=== PATIENT | male | born 1995 | race Caucasian/White ===

== ENCOUNTER 2023-07-05 18:00 | Inpatient (IN) | payer SELFPAY ==
[2023-07-05] VITALS (11 sets, daily range): BP systolic 122–157; BP diastolic 63–87; PULSE 82–104; RESP 14–26; TEMP 36.9–38.4; O2SAT 90–98; BMI 32.5; BMI 34.2
--- NOTE | 2023-07-05 18:03 | ED_ITS ---
HPI - Abdominal Pain 2 General: Chief Complaint: Abdominal Pain Stated Complaint: abd pain Time Seen by Provider: 07/05/23 18:02 History of Present Illness: 27-year-old male presents the emergency department complaints of right lower quadrant abdominal pain. He states he has had associated nausea without vomiting. He states his pain initially is a 8 out of 10 and then suddenly became better. He does endorse subjective fever and rigors. He denies recent known injury or trauma. Associated Symptoms: Reports nausea Review of Systems 2 General: Reports: 10 or more systems reviewed and unremarkable except in HPI and below GI: Reports: abdominal pain and nausea PFS ED 2 PFSH: Medical History (Updated 07/05/23 @ 21:37 by Ino Braun MD) Psychiatric care Nicotine dependence, chewing tobacco, uncomplicated Generalized anxiety disorder Social History (Updated 04/03/21 @ 09:36 by Sheryl Harris, [facility]) Alcohol intake: current Alcohol intake frequency: holidays/special occasions only Alcohol type: beer Substance/Drug Use: never Adopted: No Caregiver/support person: No Lives independently: No Household members: spouse and children Housing: House Marital status: Number of children: 2 Current occupational status: employed Current gender identity: Male Physical Exam 2 Narrative: EXAM NARRATIVE: Constitutional: the patient appears well nourished and with normal development. Vital signs reviewed as documented. HENMT: Normocephalic, atraumatic. Extermal ears with normal appearance without drainage. Nose without drainage, normal appearance. Mucus membranes moist. Neck is supple, No jugular venous distension, trachea is midline, no appreciable carotid bruits. No lymphadenopathy. No meningeal signs. Flexion, extension and lateral rotation is without pain. Eyes: Pupils are equal, round, reactive to light and accommodation. No scleral icterus. Extra-ocular movement are intact. Thorax is symmetrical and with equal rise and fall with respirations. Resp: Lungs are clear to auscultation. No wheezes, rales, crackles or ronchi at present. Cardio: Regular rate and rhythm. Positive S1, S2. No appreciable murmurs, rubs or gallops. GI: Abdominal exam reveals normal bowel sounds to all quadrants. No organomegaly. No obvious palpable masses noted. No hepatomegally appreciated. Soft, right lower quadrant tender to palpation. Extremity: Extremities are non-edematous and both femoral and pedal pulses are 2+ and equal bilaterally. Moves all extremities well, sensation in all extremities. Neuro: Alert and oriented x4, person, place, time and situation. Cranial nerves II through XII are grossly intact, there is no focal neurological deficits that I can appreciate at present. Motor strength in the upper and lower extremities are equal and bilateral 5/5. Psych: Cooperative, calm, normal thought process, appropriate judgment. Skin: No lesions, rashes. No gross abnormalities noted. Back: Symmetrical, no obvious deformity, No CVA tenderness Course 2 Vital Signs: Vital signs: Vital Signs Temperature 98.4 F 07/05/23 19:42 Pulse Rate 104 H 07/05/23 19:42 Respiratory Rate 18 07/05/23 19:42 Blood Pressure 136/76 07/05/23 19:42 Pulse Oximetry 95 07/05/23 19:42 Oxygen Delivery Me thod Room Air 07/05/23 19:42 MDM - Abdominal Pain Medical Decision Making Physical exam completed and documented, I will obtain a CBC, CMP, blood cultures and a CT scan of his abdomen pelvis I suspect most likely his differential diagnosis to include acute appendicitis, ruptured appendicitis, colitis, gastroenteritis, muscle strain. I will provide him IV antibiotics for what I suspect is most likely a appendicitis or acute ruptured appendicitis. I will also provide surgical consultation. Medical Records I reviewed the patient's medical records. Lab Data I reviewed the patient's lab results. 07/05/23 17:46 07/05/23 17:46 Labs/Radiology: Radiology Impressions Abdomen/Pelvis CT 07/05/23 18:16 IMPRESSION: 1. Acute pancreatitis. Locules of air seen outside the lumen of the appendix are concerning for perforation. 2. No abscess identified. ADDENDUM: 07/05/23 0948 THIS REPORT CONTAINS FINDINGS THAT MAY BE CRITICAL TO PATIENT CARE. The findings were verbally communicated via telephone conference with INO Albarran at 6:56 PM FEED MILL MANAGER on 07/05/2023. The findings were acknowledged and understood. Laboratory Results WBC 17.82 10^3/uL (3.29-11.43) H 07/05/23 17:46 RBC 4.76 10^6/uL (3.85-5.65) 07/05/23 17:46 Hgb 14.20 g/dL (11.27-16.99) 07/05/23 17:46 Hct 41.6 % (37-53) 07/05/23 17:46 MCV 87.4 fl (82-101) 07/05/23 17:46 MCH 29.8 pg (27-33) 07/05/23 17:46 MCHC 34.1 g/dL (30-55) 07/05/23 17:46 RDW 11.9 % (12.1-15.1) L 07/05/23 17:46 Plt Count 248 10^3/cmm (157-399) 07/05/23 17:46 MPV 11.3 fL (7.4-10.4) H 07/05/23 17:46 Neut % (Auto) 78.7 % 07/05/23 17:46 Lymph % (Auto) 10.9 % 07/05/23 17:46 [place] % (Auto) 9.8 % 07/05/23 17:46 Eos % (Auto) 0.0 % 07/05/23 17:46 Baso % (Auto) 0.3 % 07/05/23 17:46 Neut # (Auto) 14.02 10^3/uL (1.8-7.7) H 07/05/23 17:46 Lymph # (Auto) 2.0 10^3/uL (0.8-4.8) 07/05/23 17:46 [place] # (Auto) 1.7 10^3/uL (0.2-0.9) H 07/05/23 17:46 Eos # (Auto) 0.0 10^3/uL (0.0-0.8) 07/05/23 17:46 Baso # (Auto) 0.1 10^3/uL (0.0-0.1) 07/05/23 17:46 Nucleated RBC % (auto) 0 % 07/05/23 17:46 Nucleated RBCs # 0.0 /100WBC 07/05/23 17:46 Sodium 134 mmol/L (136-145) L 07/05/23 17:46 Potassium 3.7 mmol/L (3.5-5.1) 07/05/23 17:46 Chloride 98 mmol/L (98-107) 07/05/23 17:46 Carbon Dioxide 22 mmol/L (22-29) 07/05/23 17:46 Anion Gap 17.7 (5-19) 07/05/23 17:46 BUN 13 mg/dL (6-20) 07/05/23 17:46 Creatinine 0.9 mg/dL (0.7-1.2) 07/05/23 17:46 GFR Calculation 99.8 mL/min (90-130) 07/05/23 17:46 Glucose 124 mg/dL (65-115) H 07/05/23 17:46 Calculated Osmolality 280 mOsm/kg (285-295) L 07/05/23 17:46 Calcium 9.2 mg/dL (8.5-10.5) 07/05/23 17:46 Total Bilirubin 1.7 mg/dL (0.15-1.2) H 07/05/23 17:46 AST 24 U/L (0-40) 07/05/23 17:46 ALT 38 U/L (0-41) 07/05/23 17:46 Alkaline Phosphatase 65 U/L (40-130) 07/05/23 17:46 Total Protein 7.5 g/dL (6.6-8.7) 07/05/23 17:46 Albumin 4.7 g/dL (3.5-5.2) 07/05/23 17:46 Globulin 2.8 g/dL (1.3-4.6) 07/05/23 17:46 Lipase 14 U/L (13-60) 07/05/23 17:46 All radiology interpretation(s) finalized by discharge Discharge Plan Discharge Patient Disposition: Admitted As Inpatient Admit Provider: James Billy Clinical Impression: Acute perforated appendicitis, Abdominal pain Condition: Stable Coding Level of Care Code ED Clinical Documentation Spec for Annie Murillo
--- NOTE | 2023-07-05 18:16 | CTR_ITS ---
PROCEDURE INFORMATION: Exam: CT Abdomen And Pelvis With Contrast Exam date and time: 07/05/2023 6:28 PM Age: 27 years old Clinical indication: Nausea and vomiting; Abdominal pain; Localized; Right lower quadrant (rlq); Patient HX: Rlq pain with n/v; Additional info: Rlq abd pain TECHNIQUE: Imaging protocol: Computed tomography of the abdomen and pelvis with contrast. Radiation optimization: All CT scans at this facility use at least one of these dose optimization techniques: automated exposure control; mA and/or kV adjustment per patient size (includes targeted exams where dose is matched to clinical indication); or iterative reconstruction. Contrast material: OMNI 350; Contrast volume: 100 ml; Contrast route: INTRAVENOUS (IV); REPORTING DATA: Count of CT and Cardiac NM exams in prior 12 months: This patient has received 0 known CTs and 0 known cardiac nuclear medicine studies in the 12 months prior to the current study. COMPARISON: No relevant prior studies available. RADIATION DOSE METRICS: Total DLP (mGy-cm): 1061.37 FINDINGS: Liver: Normal. No mass. Gallbladder and bile ducts: Normal. No calcified stones. No ductal dilation. Pancreas: See Appendix finding. Spleen: Normal. No splenomegaly. Adrenal glands: Normal. No mass. Kidneys and ureters: Normal. No hydronephrosis. Stomach and bowel: Unremarkable. No obstruction. No mucosal thickening. Appendix: The appendix is enlarged measuring up to 18 mm in diameter. There is a 26 mm appendicolith at the base of the appendix. There is extensive periappendiceal fat stranding and a minimal amount of fluid. Findings are consistent with acute pancreatitis. Intraperitoneal space: Unremarkable. No free air. No significant fluid collection. Vasculature: Unremarkable. No abdominal aortic aneurysm. Lymph nodes: Unremarkable. No enlarged lymph nodes. Urinary bladder: Unremarkable as visualized. Reproductive: Unremarkable as visualized. Bones/joints: Bilateral pars defects at L5. Soft tissues: Unremarkable. Other findings: No abscess identified. CT/CT abdomen pelvis w con* [id number] IMPRESSION: 1. Acute pancreatitis. Locules of air seen outside the lumen of the appendix are concerning for perforation. 2. No abscess identified.
[2023-07-05] MEDS: iohexol 350 mg/mL 500 mL Btl (per mL) IV (18:32)
[2023-07-05 18:34] LABS: Basophils # 0.1 10^3/uL (0.0-0.1); Basophils % 0.3 %; Hematocrit 41.6 % (37-53); Lymphocytes % 10.9 %; Mean Corpuscular HGB Conc 34.1 g/dL (30-55); Mean Corpuscular Hemoglobin 29.8 pg (27-33); Mean Corpuscular Volume 87.4 fl (82-101); Mean Platelet Volume 11.3 fL (7.4-10.4); Monocytes # 1.7 10^3/uL (0.2-0.9); Monocytes % 9.8 %; Neutrophils # 14.02 10^3/uL (1.8-7.7); Neutrophils % 78.7 %; Nucleated Red Blood Cells % 0 %; Platelet Count 248 10^3/cmm (157-399); Red Blood Count 4.76 10^6/uL (3.85-5.65); Red Cell Distribution Width 11.9 % (12.1-15.1); White Blood Count 17.82 10^3/uL (3.29-11.43)
[2023-07-05 18:55] LABS: Alanine Aminotransferase 38 U/L (0-41); Albumin Level 4.7 g/dL (3.5-5.2); Alkaline Phosphatase 65 U/L (40-130); Anion Gap 17.7 (5-19); Aspartate Amino Transferase 24 U/L (0-40); Blood Urea Nitrogen 13 mg/dL (6-20); Calcium 9.2 mg/dL (8.5-10.5); Carbon Dioxide 22 mmol/L (22-29); Chloride 98 mmol/L (98-107); Creatinine Clr Calc Pharmacy 154.3462; Globulin 2.8 g/dL (1.3-4.6); Glomerular Filtration Rate 99.8 mL/min (90-130); Glucose 124 mg/dL (65-115); Lipase 14 U/L (13-60); Osmolality Calculated 280 mOsm/kg (285-295); Potassium 3.7 mmol/L (3.5-5.1); Sodium 134 mmol/L (136-145); Total Bilirubin 1.7 mg/dL (0.15-1.2); Total Protein 7.5 g/dL (6.6-8.7)
[2023-07-05] MEDS: ciprofloxacin 400 MG/200 ML PREMIX 200 MG IV (19:19)
[2023-07-05] MEDS: ketorolac 30 mg/mL INJ IVP (19:24)
[2023-07-05] MEDS: metroNIDAZOLE IV 500 MG/100 ML PREMIX 100 MG IV (19:27)
--- NOTE | 2023-07-05 19:31 | P.HP_ITS ---
Providers/Chief Complaint 2 Admitting Physician: James Billy MD Chief Complaint: abd pain History of Present Illness Moisés Roque is a 27 year old male who presents to the hospital complaining of right lower quadrant abdominal pain for the last [address] scan done on the ED showed evidence of a perforated acute appendicitis with a phlegmonous changes, no abscess and fecalith measuring almost 2 cm. I was consulted for this finding. White count was 17 K. Review of Systems 2 Narrative: 10 point review of systems done and nega tive otherwise noted in HPI Medications/Allergies Home Medications Medication Instructions Recorded Confirmed Last Taken Type clonazepam 1 mg tablet (Klonopin) 1 mg PO .bedtime #30 tabs 03/27/23 03/27/23 Unknown Rx Allergies Allergy/AdvReac Type Severity Reaction Status Date / Time amoxicillin Allergy Severe ALGY-Anaphy Verified 03/27/23 08:16 laxis erythromycin base Allergy Severe ALGY-Anaphy Verified 03/27/23 08:16 laxis Sulfa (Sulfonamide Allergy Severe ALGY-Anaphy Verified 03/27/23 08:16 Antibiotics) laxis PFSH Acute 2 PFSH: Medical History (Updated 07/05/23 @ 19:37 by James Billy MD) Psychiatric care Nicotine dependence, chewing tobacco, uncomplicated Generalized anxiety disorder Social History (Updated 04/03/21 @ 09:36 by Sheryl Harris, [facility]) Alcohol intake: current Alcohol intake frequency: holidays/special occasions only Alcohol type: beer Substance/Drug Use: never Adopted: No Caregiver/support person: No Lives independently: No Household members: spouse and children Housing: House Marital status: Number of children: 2 Current occupational status: employed Current gender identity: Male Vitals/I&O/Wt Last Vital Signs Temp 101.2 F H 07/05/23 18:02 Pulse 103 H 07/05/23 18:02 Resp 18 07/05/23 18:40 BP 138/63 07/05/23 18:40 Pulse Ox 92 07/05/23 18:40 O2 Del Method Room Air 07/05/23 18:40 Weight last 48 hrs Weight 240 lb Physical Exam 2 Narrative: General : Patient is well developed , no acute distress, oriented x3 Head : Normal cephalic, a-traumatic. Nose : Mucous membranes are without erythema. Lungs : Equal chest rise bilaterally, no use of accessory muscles, trachea is midline. CV : Rate and rhythm are normal. Abdomen : Abdomen is soft, there is significant tenderness in the right lower quadrant rebound tenderness, consistent with localized peritonitis. Extremities : No edema. Upper extremities are normal bilaterally. Back : non-tender to palpation, no CVA tenderness. Data 07/05/23 17:46 07/05/23 17:46 Micro: Microbiology 07/05/23 19:19 Blood Culture - Preliminary Blood SPECIMEN COLLECTED 07/05/23 19:14 Blood Culture - Preliminary Blood SPECIMEN COLLECTED A&P Assessment and plan (1) Acute perforated appendicitis: Plan After complete history physical examination and review of all available clinical data the following is my assessment. Is a patient with a perforated acute appendicitis, who is showing early signs of systemic inflammatory response, I have discussed with the patient and the proposed treatment plan with laparoscopic possible open appendectomy initiation of IV antibiotics and fluid bolus. I have discussed all the risk and benefits of the operation including the increased risk of morbidity due to perforation, need to conversion to open procedure, prolonged hospital stay, possible development of intra-abdominal abscess, increased risk of injury of surrounding structures including the ureter and blood vessels, possible development of enterocutaneous fistula. After discussing risk and benefits the patient agrees to proceed. I have discussed with emergency department physician and patient has been started on Cipro and Flagyl, he received a dose of Toradol and were starting a fluid bolus. Patient will be admitted to the medical surgical floor after surgery. Attestations 2 Medical Necessity Statement*: Patient will require at least 48 hours of inpatient stay for IV antibiotics due to perforated acute appendicitis. Coding Level of Care Code 59574 Diagnoses Acute perforated appendicitis K35.32
--- NOTE | 2023-07-05 19:38 | ANES.PREANE2 ---
Pre-Anesthetic Assessment Height/Weight: Height 1.83 m Weight 108.862 kg Temp Pulse Resp BP Pulse Ox O2 Del Method 101.2 F H 103 H 18 138/63 92 Room Air 07/05/23 18:02 07/05/23 18:02 07/05/23 18:40 07/05/23 18:40 07/05/23 18:40 07/05/23 18:40 Operation Date: 07/05/23 07:50 Proposed Procedures p Laparoscopic Appendectomy(Not Applicable) - James Billy MD Familial anesthetic complications: None Was Beta Cristine taken within 24 hours: N/A Was Clonidine taken within 24 hours: N/A Last intake: > 8hrs Social No alcohol and No tobacco Exam alert, oriented x 3, clear to auscultation bilaterally and regular rate & rhythm full banegas Airway Mallampati: Class II Dentition: full Anesthetic Plan ASA status: 1E Anesthesia: General Risk of > 500 ml blood loss (7ml/kg in children): No Medications/Allergies Home Medications Medication Instructions Recorded Confirmed Last Taken Type clonazepam 1 mg tablet (Klonopin) 1 mg PO .bedtime #30 tabs 03/27/23 03/27/23 Unknown Rx Allergies Allergy/AdvReac Type Severity Reaction Status Date / Time amoxicillin Allergy Severe ALGY-Anaphy Verified 03/27/23 08:16 laxis erythromycin base Allergy Severe ALGY-Anaphy Verified 03/27/23 08:16 laxis Sulfa (Sulfonamide Allergy Severe ALGY-Anaphy Verified 03/27/23 08:16 Antibiotics) laxis Current Medications Generic Name Dose Route Start Last Admin Trade Name Rita PRN Reason Stop Dose Admin Metronidazole 500 mg in 100 mls @ 100 mls/hr 07/05/23 19:01 07/05/23 19:27 Flagyl Iv IV 07/05/23 20:00 100 mls/hr ONCE ONE Administration Ciprofloxacin/Dextrose 400 mg in 200 mls @ 200 mls/hr 07/05/23 19:01 07/05/23 19:19 Cipro IV 07/05/23 20:00 200 mls/hr ONCE ONE Administration Protocol [facility] Anesthesia Medical History (Updated 07/05/23 @ 19:37 by James Billy MD) Psychiatric care Nicotine dependence, chewing tobacco, uncomplicated Generalized anxiety disorder Social History (Updated 04/03/21 @ 09:36 by Sheryl Harris, [facility]) Alcohol intake: current Alcohol intake frequency: holidays/special occasions only Alcohol type: beer Substance/Drug Use: never Adopted: No Caregiver/support person: No Lives independently: No Household members: spouse and children Housing: House Marital status: Number of children: 2 Current occupational status: employed Current gender identity: Male Data Anesthesia 07/05/23 17:46 07/05/23 17:46 Short CBC 07/05/23 Range/Units 17:46 WBC 17.82 H (3.29-11.43) 10^3/uL Hgb 14.20 (11.27-16.99) g/dL Hct 41.6 (37-53) % MCV 87.4 (82-101) fl Plt Count 248 (157-399) 10^3/cmm Neut % (Auto) 78.7 % Neut # (Auto) 14.02 H (1.8-7.7) 10^3/uL BMP 07/05/23 17:46 Sodium 134 L Potassium 3.7 Chloride 98 Carbon Dioxide 22 BUN 13 Creatinine 0.9 Glucose 124 H Calcium 9.2 Liver Function 07/05/23 Range/Units 17:46 Total Bilirubin 1.7 H (0.15-1.2) mg/dL AST 24 (0-40) U/L ALT 38 (0-41) U/L Alkaline Phosphatase 65 (40-130) U/L Albumin 4.7 (3.5-5.2) g/dL Microbiology 07/05/23 19:19 Blood Culture - Preliminary Blood SPECIMEN COLLECTED 07/05/23 19:14 Blood Culture - Preliminary Blood SPECIMEN COLLECTED Cardiac Studies: No Data to Display
[2023-07-05] MEDS: lidocaine-epi 2% 20 mL INJ INJECTION (20:35)
[2023-07-05] MEDS: BUPivacaine 0.25% INJ 10 mL INJECTION (20:35)
--- NOTE | 2023-07-05 22:30 | P.OP_ITS ---
Operative Report Date of procedure: July 05, 2023 Pre-op diagnosis: Perforated acute appendicitis Post-op diagnosis: Perforated acute appendicitis with abscess Post-op findings: There was a perforated acute appendicitis with phlegmonous changes pericolonic abscess noted, the appendix was densely adhered to the surrounding tissues including the retroperitoneum, the tip of the appendix extended all the way down up to the level of the midline of the patient, the perforation was a lower level of the base, 2 very large large fecaliths were identified at this region. Extensive dissection was required in order to mobilize the colon and appendix. Procedure done: Laparoscopic appendectomy and partial cecectomy Specimens removed/disposition: Appendix and portion of cecum. Surgeon: James Billy MD Dental Chair Assembler: [facility] Estimated blood loss: 15 Complications: None apparent Brief History: This is a 27-year-old male who presented to emergency room complaining of abdominal pain CT scan showed evidence of perforated acute appendicitis, patient was emergently taken to the OR for laparoscopic appendectomy after discussion of all the risk and benefits were done with the patient, he was informed that he was a very high risk for complications due to the nature of his disease and the severe inflammatory process in the right lower quadrant. Patient agreed with the reason and wished to proceed. Procedure: Patient was brought into the OR. She he was placed in the supine position. The abdomen was prepped and draped in the usual sterile fashion. Timeout was conducted. The abdomen was entered via infraumbilical incision with an open technique, a 12 mm Mallory trocar was placed and fixed to the fascia with 0 Vicryl. Initial laparoscopy showed evidence of no visceral injury during entry. Additional 5 mm trocars were placed in the suprapubic and left lower quadrant position. The patient was positioned steep Trendelenburg left side down. Findings dense inflammatory process was noted on the right lower quadrant the terminal ileum was plastered to the cecum, blunt mobilization of these structures was done and revealed a large abscess containing stool and purulent material, the abscess was drained with suction irrigation. At this moment I was able to visualize the appendix, the appendix was densely adhered to the retroperitoneum and expanding almost to the level of the midline. I proceeded with careful dissection using blunt mobilization and ligasure mobilized the mesoappendix from the tip of the appendix to the base, at this point it was apparent that the large perforation was at the level of the base and therefore I proceeded to incise the white line of Toldt and mobilized the right colon medially to allow for space for stapling of the base of the appendix. Extensive dissection was needed in order to mobilize the appendix and the cecum, there was dense adhesions caused by the inflammation. Once the cecum was mobilized medialized I then identified a good landing zone for my stapler, a portion of the cecum was transected using a 45 mm blue load Endo BRNADEE stapler x 3. I took careful consideration of not injuring the terminal ileum during this process. The specimen and fecaliths were retrieved via the umbilical incision in an Endo Catch bag. The abdominal cavity was washed out and a drain was placed and delivered through the left lower quadrant trocar, the drain was fixed with #2-0 silk. The umbilical trocar site was then closed using 0 Vicryl on a Víctor- Bianka scooter passer under direct visualization. The suprapubic trocar was used to evacuate the pneumoperitoneum and subsequently removed. The umbilical trocar site fascia was then closed using the 0 Vicryl that was used to fix the Mallory trocar in place. The wounds were closed with #4-0 Monocryl. Dermabond was applied. At the end of the procedure all counts were correct, patient was extubated and transferred to the PACU in stable condition.
--- NOTE | 2023-07-05 22:51 | PC.NURSE ---
2248 - oral airway removed per pt - simple mask at [address]
[2023-07-06] VITALS (10 sets, daily range): BP systolic 110–122; BP diastolic 67–77; PULSE 58–87; RESP 16–18; TEMP 36.4–36.7; O2SAT 92–97; BMI 34.5
[2023-07-06] MEDS: HYDROmorphone 1 mg/mL INJ 1 mL 0.5 MG IVP ×2 (00:53→05:11)
[2023-07-06] MEDS: lactated ringers 1,000 ML 100 ML IV ×2 (01:11→11:01)
[2023-07-06] MEDS: acetaminophen 1,000 MG/100 ML PIGGYBACK 400 MG IV ×3 (01:14→14:25)
[2023-07-06] MEDS: ciprofloxacin 400 MG/200 ML PREMIX 200 MG IV ×2 (01:25→12:50)
[2023-07-06] MEDS: ondansetron 2 mg/ML SDV 2 mL 4 MG IVP (03:10)
[2023-07-06] MEDS: metroNIDAZOLE IV 500 MG/100 ML PREMIX 100 MG IV ×2 (03:11→11:01)
[2023-07-06] MEDS: ketorolac 30 mg/mL INJ 15 MG IVP (04:46)
[2023-07-06 07:03] LABS: Blood Urea Nitrogen 17 mg/dL (6-20); Calcium 8.3 mg/dL (8.5-10.5); Carbon Dioxide 19 mmol/L (22-29); Chloride 99 mmol/L (98-107); Glomerular Filtration Rate 114.3 mL/min (90-130); Glucose 175 mg/dL (65-115); Osmolality Calculated 282 mOsm/kg (285-295); Sodium 133 mmol/L (136-145)
[2023-07-06 07:33] LABS: Anion Gap 19.1 (5-19); Potassium 4.1 mmol/L (3.5-5.1)
--- NOTE | 2023-07-06 09:12 | PC.NURSE ---
Patient has repeated complaints of his swan catheter bothering him. Raquel, charger, called the doctor who instructed nurse to leave swan in.
--- NOTE | 2023-07-06 09:13 | CTR_ITS ---
PROCEDURE INFORMATION: Exam: CT Abdomen And Pelvis Without And With Contrast Exam date and time: 07/06/2023 9:47 AM Age: 27 years old Clinical indication: Abdominal pain; Prior surgery; Surgery date: Post-operative (0-2 days); Surgery type: Appy; Additional info: Evaluation for right ureter injury. Need urogram, please do delayed phases to evaluate ureter anatomy. CT TECHNIQUE: Imaging protocol: Computed tomography of the abdomen and pelvis without and with contrast. Radiation optimization: All CT scans at this facility use at least one of these dose optimization techniques: automated exposure control; mA and/or kV adjustment per patient size (includes targeted exams where dose is matched to clinical indication); or iterative reconstruction. Contrast material: OMNI 350; Contrast volume: 100 ml; Contrast route: INTRAVENOUS (IV); REPORTING DATA: Count of CT and Cardiac NM exams in prior 12 months: This patient has received [address] and 0 known cardiac nuclear medicine studies in the 12 months prior to the current study. COMPARISON: CT abdomen pelvis w con* [id number] 07/05/2023 6:28 PM RADIATION DOSE METRICS: Total DLP (mGy-cm): 3888.97 FINDINGS: Tubes, catheters and devices: Draining catheter is seen entering the left lower quadrant with its tip in the right lower quadrant. Lungs: Bibasilar posterior consolidations with air bronchograms. Liver: 1.3 centimeters hypodensity in segment 8 of the liver. Small amount of perihepatic free air is seen, consistent with the recent history of surgery. Trace amount of non organized fluid is seen along the right paracolic gutter. Gallbladder and bile ducts: Gallbladder is normally distended, with layering high attenuating contrast material. Pancreas: No pancreatic mass or pancreatitis. Pancreatic duct normal in caliber. Spleen: Normal spleen. Adrenal glands: No adrenal nodule. Kidneys and ureters: No hydronephrosis, or obstructing nephroureterolithiasis. Stomach and bowel: The bowel is nondilated, no mechanical bowel obstruction. Surgical staple line is seen in the proximal right colon. Minimal surrounding free fluid and fat stranding. Appendix: Patient is status post appendectomy. Intraperitoneal space: No lymphadenopathy. Vasculature: Hepatic veins and portal veins are patent. Abdominal aorta is normal size and shape. The celiac and SMA arteries are patent. Lymph nodes: No lymphadenopathy. Urinary bladder: The bladder is partially contrast filled, with a Singh in place. Both ureters are seen and contrast filled. No evidence of extravasation of intraluminal contrast. Reproductive: Reproductive organs unremarkable. Bones/joints: No acute fracture. Mild degenerative changes of the thoracolumbar spine. Soft tissues: Unremarkable. Other findings: No extravasation of material is seen. CT/CT abdomen pelvis wo/w [id number] IMPRESSION: 1. Status post appendectomy with minimal trace of surrounding fluid along the right proximal colon. 2. No evidence of extravasation from the right ureter, the right ureter appears intact. 3. Trace of free intra-abdominal air consistent with recent surgical history. 4. Bibasilar lung consolidations, which may represent atelectasis, aspiration pneumonia can not be ruled out.
[2023-07-06 09:16] LABS: Specific Gravity, Urine 1.025 (1.005-1.030); Urine Appearance Hazy (CLEAR); Urine Color Red (Yellow); pH Urine 5 (5-7)
[2023-07-06 09:17] LABS: Add Urine Culture? No; Add Urine Microscopic? YES; Amorphous Sediment Urine 2+ /hpf; Bacteria Urine TRACE /hpf; Bilirubin Urine 1+ (Negative); Blood Urine 2+ (Negative); Glucose Urine UA 2+ (Normal); Ketones Urine 1+ (Negative); Leukocyte Esterase Urine Trace (Negative); Mucus Urine 2+ /hpf; Nitrate Urine Negative (Negative); Protein Urine Trace (Negative); Urobilinogen Urine 4 mg/dL (Negative); WBC Urine RARE /hpf (0-5)
--- NOTE | 2023-07-06 09:21 | PM.PN ---
Subjective Subjective: Is a 27-year-old male who is postoperative day 1 status post laparoscopic appendectomy for complicated appendicitis with perforation. Patient has been having a headache after surgery, abdominal pain has significantly improved. Only complaint at the moment of my visit is headache and discomfort from urinary catheter. Headache is about 5/10, abdominal pain about 2 or 3/10. Patient states that he is hungry and would like to eat. Has not passed gas yet or had a bowel movement. Vitals/I&O/Wt Last Vital Signs Temp 97.6 F 07/06/23 07:02 Pulse 60 07/06/23 07:02 Resp 17 07/06/23 07:02 BP 110/67 07/06/23 07:02 Pulse Ox 93 07/06/23 07:02 O2 Del Method Room Air 07/06/23 07:02 O2 Flow Rate 3 07/05/23 23:08 07/05/23 07/06/23 07/06/23 22:59 06:59 14:59 Intake Total 350 / 350 400 / 750 100 / 100 Output Total 315 / 315 390 / 705 Balance 35 / 35 10 / 45 100 / 100 Weight last 48 hrs Weight 254 lb 14.4 oz Weight 252 lb 1.6 oz Weight 240 lb Physical Exam Narrative: General : Patient is well developed , no acute distress, oriented x3 Head : Normal cephalic, a-traumatic. Nose : Mucous membranes are without erythema. Lungs : Equal chest rise bilaterally, no use of accessory muscles, trachea is midline. CV : Rate and rhythm are normal. Abdomen : Abdomen is soft, appropriately tender to palpation, surgical incisions are covered with Dermabond. Left lower quadrant drain in place Output about 300 cc overnight, at the moment sero-sanguinous fluid noted on the drain. Singh catheter in place, urine appears concentrated. Extremities : No edema. Upper extremities are normal bilaterally. Back : non-tender to palpation, no CVA tenderness. Urinary Catheter Management: Snigh: Cath Placed During This Visit: yes Reason for Continuing Indwelling Catheter: Required Immobilization for Trauma or Surgery or Anesthesia Urinary Catheter Date of Insertion: 07/05/23 Urinary Catheter Time of Insertion: 20:00 Data 07/05/23 17:46 07/06/23 04:59 Micro: Microbiology 07/05/23 19:19 Blood Culture - Preliminary Blood SPECIMEN COLLECTED 07/05/23 19:14 Blood Culture - Preliminary Blood SPECIMEN COLLECTED A&P Assessment and plan (1) Acute perforated appendicitis: (2) Hematuria detected by chemical testing: Plan Is a 27-year-old male postoperative day 1 status post laparoscopic appendectomy for perforated acute appendicitis. I discussed with the patient the findings of the operation this morning, I explained to the patient that there was significant amount of inflammation on the right lower quadrant involving the sidewall and extending down to the pelvis. I explained to the patient that the extensive dissection was needed in order to mobilize his appendix and partial cecal resection was require as the perforation was at the level of the base of the appendix. I have explained to the patient that I was informed that there was a blood-tinged urine during the procedure but I was unable to identify any ureteral or bladder injury seen throughout. I explained that due to the severity of the inflammation and the local inflammatory changes there is a moderate to high likelihood of a urological injury due to the amount of dissection required. Urinalysis obtained this morning showed evidence of 5-10 RBCs per power field. This supports the idea of a possible urological injury, and a stat CT urogram will be obtained, I have discussed with the patient that if the results of the urogram show evidence of a urological injury and immediate transfer to higher level of care will be required to manage the injury and provide immediate repair. Patient shows understanding, ample time was given to ask questions. At the time he does not have questions regarding the possible injury his only questions to me were if he will be able to eat or if we can remove the Singh catheter, I explained that he will be kept n.p.o. and Singh catheter in place until we have a result from the CT scan. Attestations Medical Necessity Statement*: Patient will require at least 48 hours more of hospital stay for IV antibiotics, he may require transfer to higher level of care if we identify a ureteral injury. Coding Level of Care Code Acute Code for [facility] Diagnoses Acute perforated appendicitis K35.32 Hematuria detected by chemical testing R31.9
[2023-07-06 09:35] LABS: Basophils % 0.2 %; Hematocrit 37.8 % (37-53); Lymphocytes # 0.5 10^3/uL (0.8-4.8); Lymphocytes % 2.5 %; Mean Corpuscular HGB Conc 32.3 g/dL (30-55); Mean Corpuscular Hemoglobin 29.8 pg (27-33); Mean Corpuscular Volume 92.2 fl (82-101); Mean Platelet Volume 11.4 fL (7.4-10.4); Monocytes # 0.7 10^3/uL (0.2-0.9); Monocytes % 3.8 %; Neutrophils % 92.7 %; Nucleated Red Blood Cells % 0 %; Platelet Count 180 10^3/cmm (157-399); Red Cell Distribution Width 12.4 % (12.1-15.1); White Blood Count 19.08 10^3/uL (3.29-11.43)
--- NOTE | 2023-07-06 09:57 | ANE.PACU2 ---
Inpatient post-anesthesia follow up: Airway intact: Yes Vital signs: Temperature 97.6 F Pulse Rate 60 Respiratory Rate 17 Blood Pressure 110/67 Pulse Oximetry 93 Oxygen Delivery Me thod Room Air Oxygen Flow Rate 3 Fraction of Inspir ed Oxygen Hydration adequate: Yes Nausea and vomiting: No Pain level: 1 Mental status: Baseline
[2023-07-06] MEDS: iohexol 350 mg/mL 500 mL Btl (per mL) IV (10:08)
[2023-07-06] MEDS: acetaminophen 325 mg Tablet 650 MG PO (12:49)
--- NOTE | 2023-07-06 13:28 | PM.PN ---
Subjective Subjective: Patient remains a stable, CT urogram was done this morning my assessment will be noted below. Vitals/I&O/Wt Last Vital Signs Temp 98.1 F 07/06/23 12:28 Pulse 62 07/06/23 12:28 Resp 18 07/06/23 12:28 BP 111/72 07/06/23 12:28 Pulse Ox 93 07/06/23 12:28 O2 Del Method Room Air 07/06/23 12:28 O2 Flow Rate 3 07/05/23 23:08 07/05/23 07/06/23 07/06/23 22:59 06:59 14:59 Intake Total 350 / 350 400 / 750 1183.333 / 1183.333 Output Total 315 / 315 390 / 705 Balance 35 / 1183.333 / 1183.333 Weight last 48 hrs Weight 254 lb 14.4 oz Weight 252 lb 1.6 oz Weight 240 lb Physical Exam GI: OTHER: Abdominal exam is a stable, ELBA output of the serosanguineous. Urinary Catheter Management: Singh: Cath Placed During This Visit: yes Reason for Continuing Indwelling Catheter: Required Immobilization for Trauma or Surgery or Anesthesia Urinary Catheter Date of Insertion: 07/05/23 Urinary Catheter Time of Insertion: 20:00 Data 07/06/23 04:59 07/06/23 04:59 Micro: Microbiology 07/05/23 19:19 Blood Culture - Preliminary Blood SPECIMEN COLLECTED 07/05/23 19:14 Blood Culture - Preliminary Blood SPECIMEN COLLECTED A&P Assessment and plan (1) Acute perforated appendicitis: (2) Hematuria detected by chemical testing: (3) Ureteral obstruction, right: Plan After my discussion with the patient and the family this morning we decided to proceed with CT urogram. CT urogram was read by our radiology colleagues and no evidence of significant extravasation or transection of the right ureter were noted. Upon my personal review of the imaging there is evidence of substantial narrowing of the ureter on the right side in the area that crosses over the iliac vessels, I discussed this findings with radiology and in their opinion it might be because due to edema and a close follow-up was recommended. After complete review of the imaging I have also noted some secondary changes at the level of the upper right ureter that may represent an increase in caliber when compared with the left ureter, therefore it is my assessment that there might be a stricture either due to edema or a partial transection of the ureter on the area overlying the right iliac vessels. I think the best option for the patient will be to transfer to outside facility for urology evaluation. I have discussed the case with Dr. Maynard with the urology department at [facility] in the [place] and after explaining the findings and clinical examination of the patient he has decided to accept the patient for a cystoscopy possible stent placement and possible nephrostomy tube placement indicates that that is not feasible. I agree with this assessment, we have started the transfer process to [facility] in the [place] patient has been accepted to the hospitalist team and will be follow-up by urology and general surgery. I informed the patient of these transfer and he is agreeable to it I have informed the patient that the team and nursing [place] will attempt to do the cystoscopy today to ensure prompt resolution of any possible injury. Attestations Medical Necessity Statement*: Patient will be transferred to outside hospital for evaluation by urology. Coding Level of Care Code Acute Code for [facility] Diagnoses Acute perforated appendicitis K35.32 Hematuria detected by chemical testing R31.9 Ureteral obstruction, right N13.5
--- NOTE | 2023-07-06 18:51 | P.TS_ITS ---
Transfer Summary Providers Date of Admission: 07/05/23 19:48 Date of Discharge/Transfer: 07/06/23 Attending Provider at Admission: James Billy MD Attending Provider at Transfer: James Billy MD Transfer Plans: Anticipated date of transfer: 07/06/23 . Diagnoses at Discharge Discharge Diagnosis (1) Acute perforated appendicitis: Status: Acute (2) Hematuria detected by chemical testing: Status: Acute (3) Ureteral obstruction, right: Status: Acute Reason for Visit Reason for Visit abd pain Brief History: 27-year-old male who presented with perforated acute appendicitis, was taken to the OR for laparoscopic appendectomy, severe inflammatory reaction in the right lower quadrant was noted with abscess formation, perforation at the base of the appendix and 2 large appendicoliths, the appendix was plastered to the pelvic wall requiring extensive dissection for mobilization. Was noted to have blood- tinged urine during index procedure, which prompted a postoperative assessment for evaluation for possible ureteral injury. CT ureterogram showed evidence of possible stricture due to inflammation at the level of the pelvic brim on the right ureter, after review of imaging and discussion with urologist at [facility] in the [place] we decided that the best option for the patient will be for transfer for possible stent placement and if needed a nephrostomy tube. Patient was informed of these findings as well as family members he agreed with the transfer, he was stable at the moment of transfer. Additional inpatient care will be continued at [facility] in [place], patient will be accepted under the hospitalist team, will be followed by urology and general surgery. Physical Exam GI: OTHER: Abdomen soft, appropriately tender to palpation, surgical incisions covered with Dermabond, left lower quadrant drain putting out serosanguineous fluid. Urinary Catheter Management: Singh: Cath Placed During This Visit: yes Reason for Continuing Indwelling Catheter: Required Immobilization for Trauma or Surgery or Anesthesia Urinary Catheter Date of Insertion: 07/05/23 Urinary Catheter Time of Insertion: 20:00 TS Data Studies Completed and Pending Pending at discharge Category Date Time Status Blood Culture Stat Lab 07/05/23 19:19 Results Pathology: Surgical [PTH] Routine Pth 07/05/23 22:28 Ordered Completed Studies During Hospitalization Category Date Time Status CT abdomen pelvis w con* [id number] Stat Cat Scan 07/05/23 18:[address] abdomen pelvis wo/w [id number] Stat Cat Scan 07/06/23 09:13 Completed Laboratory Last Values WBC 19.08 10^3/uL (3.29-11.43) H 07/06/23 04:59 RBC 4.10 10^6/uL (3.85-5.65) 07/06/23 04:59 Hgb 12.20 g/dL (11.27-16.99) 07/06/23 04:59 Hct 37.8 % (37-53) 07/06/23 04:59 MCV 92.2 fl (82-101) D 07/06/23 04:59 MCH 29.8 pg (27-33) 07/06/23 04:59 MCHC 32.3 g/dL (30-55) D 07/06/23 04:59 RDW 12.4 % (12.1-15.1) 07/06/23 04:59 Plt Count 180 10^3/cmm (157-399) 07/06/23 04:59 MPV 11.4 fL (7.4-10.4) H 07/06/23 04:59 Neut % (Auto) 92.7 % 07/06/23 04:59 Lymph % (Auto) 2.5 % 07/06/23 04:59 Dickinson % (Auto) 3.8 % 07/06/23 04:59 Eos % (Auto) 0.0 % 07/06/23 04:59 Baso % (Auto) 0.2 % 07/06/23 04:59 Neut # (Auto) 17.70 10^3/uL (1.8-7.7) H 07/06/23 04:59 Lymph # (Auto) 0.5 10^3/uL (0.8-4.8) L 07/06/23 04:59 Dickinson # (Auto) 0.7 10^3/uL (0.2-0.9) 07/06/23 04:59 Eos # (Auto) 0.0 10^3/uL (0.0-0.8) 07/06/23 04:59 Baso # (Auto) 0.0 10^3/uL (0.0-0.1) 07/06/23 04:59 Nucleated RBC % (auto) 0 % 07/06/23 04:59 Nucleated RBCs # 0.0 /100WBC 07/06/23 04:59 Sodium 133 mmol/L (136-145) L 07/06/23 04:59 Potassium 4.1 mmol/L (3.5-5.1) 07/06/23 04:59 Chloride 99 mmol/L (98-107) 07/06/23 04:59 Carbon Dioxide 19 mmol/L (22-29) L 07/06/23 04:59 Anion Gap 19.1 (5-19) H 07/06/23 04:59 BUN 17 mg/dL (6-20) 07/06/23 04:59 Creatinine 0.8 mg/dL (0.7-1.2) 07/06/23 04:59 GFR Calculation 114.3 mL/min (90-130) 07/06/23 04:59 Glucose 175 mg/dL (65-115) H 07/06/23 04:59 Calculated Osmolality 282 mOsm/kg (285-295) L 07/06/23 04:59 Calcium 8.3 mg/dL (8.5-10.5) L 07/06/23 04:59 Total Bilirubin 1.7 mg/dL (0.15-1.2) H 07/05/23 17:46 AST 24 U/L (0-40) 07/05/23 17:46 ALT 38 U/L (0-41) 07/05/23 17:46 Alkaline Phosphatase 65 U/L (40-130) 07/05/23 17:46 Total Protein 7.5 g/dL (6.6-8.7) 07/05/23 17:46 Albumin 4.7 g/dL (3.5-5.2) 07/05/23 17:46 Globulin 2.8 g/dL (1.3-4.6) 07/05/23 17:46 Lipase 14 U/L (13-60) 07/05/23 17:46 Urine Color Red (Yellow) A 07/06/23 07:48 Urine Appearance Hazy (CLEAR) A 07/06/23 07:48 Urine pH 5 (5-7) 07/06/23 07:48 Ur Specific [place] 1.025 (1.005-1.030) 07/06/23 07:48 Urine Protein Trace (Negative) 07/06/23 07:48 Urine Glucose (UA) 2+ (Normal) H 07/06/23 07:48 Urine Ketones 1+ (Negative) H 07/06/23 07:48 Urine Blood 2+ (Negative) H 07/06/23 07:48 Urine Nitrate Negative (Negative) 07/06/23 07:48 Urine Bilirubin 1+ (Negative) H 07/06/23 07:48 Urine Urobilinogen 4 mg/dL (Negative) H 07/06/23 07:48 Ur Leukocyte Esterase Trace (Negative) H 07/06/23 07:48 Urine RBC 5-10 /hpf (0-2) H 07/06/23 07:48 Urine WBC Rare /hpf (0-5) 07/06/23 07:48 Ur Squamous Epith Cells None /hpf (0-5) 07/06/23 07:48 Amorphous Sediment 2+ /hpf 07/06/23 07:48 Urine Bacteria Trace /hpf (NONE) 07/06/23 07:48 Urine Mucus 2+ /hpf 07/06/23 07:48 Radiology Impressions Abdomen/Pelvis CT 07/06/23 09:13 IMPRESSION: 1. Status post appendectomy with minimal trace of surrounding fluid along the right proximal colon. 2. No evidence of extravasation from the right ureter, the right ureter appears intact. 3. Trace of free intra-abdominal air consistent with recent surgical history. 4. Bibasilar lung consolidations, which may represent atelectasis, aspiration pneumonia can not be ruled out. ADDENDUM: 07/06/23 1110 ADDENDUM: Findings discussed with Dr Billy at 11:00 a.m. 07/06/2023. There is mild narrowing of the distal right ureter as it crosses the right common iliac artery without any evidence of extravasation of contrast. This may suggest mild narrowing of the ureter likely secondary to edema. Close follow-up recommended. Recent Clincial Data Last Vital Signs Temp 98 F 07/06/23 17:55 Pulse 72 07/06/23 17:55 Resp 17 07/06/23 17:55 BP 114/73 07/06/23 17:55 Pulse Ox 94 07/06/23 17:55 O2 Del Method Nasal Cannula 07/06/23 16:27 O2 Flow Rate 3 07/05/23 23:08 Vital Signs Temp Pulse Resp BP Pulse Ox O2 Del Method 07/06/23 17:55 98 F 72 17 114/73 94 07/06/23 16:27 98 F 72 17 114/73 94 Nasal Cannula 07/06/23 12:28 98.1 F 62 18 111/72 93 Room Air 07/06/23 11:45 78 16 97 Room Air 07/06/23 07:02 97.6 F 60 17 110/67 93 Room Air Intake & Output/Weight 07/04/23 07/05/23 07/06/23 07/07/23 06:59 06:59 06:59 06:59 Intake Total 750 / 750 1483.333 / 1483.333 Output Total 705 / 705 700 / 700 Balance 45 / 45 783.333 / 783.333 Weight 254 lb 14.4 oz Vitals Last Vital Signs Temp 98 F 07/06/23 17:55 Pulse 72 07/06/23 17:55 Resp 17 07/06/23 17:55 BP 114/73 07/06/23 17:55 Pulse Ox 94 07/06/23 17:55 O2 Del Method Nasal Cannula 07/06/23 16:27 O2 Flow Rate 3 07/05/23 23:08 TS Medications Medications Discontinued Medications Acetaminophen (Acetaminophen 325 Mg Tablet) 650 mg PO ONCE ONE Stop: 07/06/23 12:34 Last Admin: 07/06/23 12:49 Dose: 650 mg Albuterol Sulfate (Albuterol 2.5 Mg/3 Ml Neb) 2.5 mg INHALATION ONCE PRN PRN Reason: WHEEZING Benzocaine (Cetylpyridinium Lozenge) 1 each MUCOUS MEM ONCE ONE Stop: 07/05/23 19:49 Last Admin: 07/06/23 02:21 Dose: Not Given Bupivacaine HCl (Bupivacaine 0.25% Inj 10 Ml) Confirm Administered Dose 10 ml .ROUTE .STK-MED ONE Stop: 07/05/23 19:38 Bupivacaine HCl (Bupivacaine 0.25% Inj 10 Ml) 10 ml INJECTION ONCE ONE Stop: 07/05/23 20:35 Last Admin: 07/05/23 20:35 Dose: 10 ml Dexamethasone (Dexamethasone 4 Mg/Ml Inj) 4 mg IVP Q5M PRN PRN Reason: Nausea unrelieved by Reglan Stop: 07/06/23 19:48 Dexamethasone (Dexamethasone 4 Mg/Ml Inj) Confirm Administered Dose 8 mg .ROUTE .STK-MED ONE Stop: 07/05/23 20:05 Famotidine (Famotidine 20 Mg/2 Ml Inj) 20 mg IVP ONCE PRN PRN Reason: HEARTBURN Fentanyl (Fentanyl 50 Mcg/Ml Inj 2ml) Confirm Administered Dose 100 mcg .ROUTE .STK-MED ONE Stop: 07/05/23 19:47 Fentanyl (Fentanyl 50 Mcg/Ml Inj 2ml) 50 mcg IVP Q10M PRN PRN Reason: Preop Pain Fentanyl (Fentanyl 50 Mcg/Ml Inj 2ml) 50 mcg IVP Q5M PRN PRN Reason: Pain level 6-10 PACU Phase I Stop: 07/06/23 19:48 Fentanyl (Fentanyl 50 Mcg/Ml Inj 2ml) 100 mcg IVP ONCE PRN PRN Reason: Per anesthesia for block Glycopyrrolate (Glycopyrrolate 0.2 Mg/Ml Sdv 2 Ml) Confirm Administered Dose 0.4 mg .ROUTE .STK-MED ONE Stop: 07/05/23 21:50 Hydromorphone HCl (Hydromorphone 1 Mg/Ml Inj 1 Ml) 0.25 mg IVP Q10M PRN PRN Reason: Pain level 4-6 PACU Phase I Stop: 07/06/23 19:48 Hydromorphone HCl (Hydromorphone 1 Mg/Ml Inj 1 Ml) 0.5 mg IVP Q10M PRN PRN Reason: Pain level 7-10 PACU Phase I Stop: 07/06/23 19:48 Hydromorphone HCl (Hydromorphone 1 Mg/Ml Inj 1 Ml) Confirm Administered Dose 1 mg .ROUTE .[employer]-MED ONE Stop: 07/05/23 20:23 Hydromorphone HCl (Hydromorphone 1 Mg/Ml Inj 1 Ml) 0.5 mg IVP Q4H PRN PRN Reason: BREAKTHROUGH PAIN Last Admin: 07/06/23 05:11 Dose: 0.5 mg Cefoxitin Sodium 2,000 mg/ (Sodium Chloride) 50 mls @ 100 mls/hr IV ONCE ONE; P rotocol Stop: 07/05/23 19:26 Last Admin: 07/05/23 19:03 Dose: Not Given Metronidazole (Flagyl Iv) 500 mg in 100 mls @ 100 mls/hr IV ONCE ONE Stop: 07/05/23 20:00 Last Infusion: 07/05/23 21:00 Dose: Infused Ciprofloxacin/Dextrose (Cipro) 400 mg in 200 mls @ 200 mls/hr IV ONCE ONE; Protocol Stop: 07/05/23 20:00 Last Infusion: 07/05/23 20:08 Dose: Infused Lactated Ringer's (Lactated Ringers) 1,000 mls @ 999 mls/hr IV .Q1H1M ONE Stop: 07/05/23 20:28 Last Admin: 07/06/23 02:20 Dose: Not Given Sodium Chloride (Sodium Chloride 0.9%) 500 mls @ 999 mls/hr IV .Q31M PRN PRN Reason: HYPOTENSION Sodium Chloride (Sodium Chloride 0.9%) 1,000 mls @ 30 mls/hr IV .Q24H NELLIE Stop: 07/06/23 19:59 Last Admin: 07/06/23 02:21 Dose: Not Given Sodium Chloride (Sodium Chloride 0.9%) Confirm Administered Dose 1,000 mls @ as directed .ROUTE .STK-MED ONE Stop: 07/05/23 19:57 Last Admin: 07/06/23 00:29 Dose: Not Given Lidocaine HCl (Xylocaine) Confirm Administered Dose 5 mls @ as directed .ROUTE .STK-MED ONE Stop: 07/05/23 20:05 Acetaminophen (Acetaminophen) Confirm Administered Dose 1,000 mg in 100 mls @ as directed .ROUTE .STK-MED ONE Stop: 07/05/23 20:24 Lactated Ringer's (Lactated Ringers) 1,000 mls @ 100 mls/hr IV .Q10H NELLIE Last Admin: 07/06/23 11:01 Dose: 100 mls/hr Ciprofloxacin/Dextrose (Cipro) 400 mg in 200 mls @ 200 mls/hr IV Q12H NELLIE; Protocol Last Infusion: 07/06/23 15:40 Dose: Infused Metronidazole (Flagyl Iv) 500 mg in 100 mls @ 100 mls/hr IV Q8H NELLIE; Protocol Last Infusion: 07/06/23 13:06 Dose: Infused Acetaminophen (Acetaminophen) 1,000 mg in 100 mls @ 400 mls/hr IV Q8H NELLIE Stop: 07/06/23 15:42 Last Infusion: 07/06/23 15:40 Dose: Infused Lactated Ringer's (Lactated Ringers) 1,000 mls @ 999 mls/hr IV .Q1H1M ONE Stop: 07/06/23 07:32 Last Admin: 07/06/23 10:51 Dose: Not Given Iohexol (Iohexol 350 Mg/Ml 500 Ml Btl (Per Ml)) 0 ml IV ONCE ONE Stop: 07/05/23 18:33 Last Admin: 07/05/23 18:32 Dose: 100 ml Iohexol (Iohexol 350 Mg/Ml 500 Ml Btl (Per Ml)) 0 ml IV ONCE ONE Stop: 07/06/23 10:09 Last Admin: 07/06/23 10:08 Dose: 100 ml Ipratropium Malone (Ipratropium 0.5 Mg/2.5 Ml Neb) 0.5 mg INHALATION ONCE PRN PRN Reason: WHEEZING Ketorolac Tromethamine (Ketorolac 30 Mg/Ml Inj) 30 mg IVP ONCE ONE Stop: 07/05/23 19:02 Last Admin: 07/05/23 19:24 Dose: 30 mg Ketorolac Tromethamine (Ketorolac 30 Mg/Ml Inj) 15 mg IVP ONCE ONE Stop: 07/06/23 04:14 Last Admin: 07/06/23 04:46 Dose: 15 mg Lidocaine HCl (Lidocaine 1% Inj 10 Ml (Per Ml)) 0.1 ml INTRADERMA PRN PRN PRN Reason: anesthetic prior to IV start Lidocaine/Epinephrine (Lidocaine-Epi 2% 20 Ml Inj) Confirm Administered Dose 20 ml .ROUTE .STK-MED ONE Stop: 07/05/23 19:38 Lidocaine/Epinephrine (Lidocaine-Epi 2% 20 Ml Inj) 20 ml INJECTION ONCE ONE Stop: 07/05/23 20:34 Last Admin: 07/05/23 20:35 Dose: 10 ml Meperidine HCl (Meperidine 50 Mg/Ml Inj) 12.5 mg IVP Q5M PRN PRN Reason: Shivering PACU Phase I Stop: 07/06/23 19:48 Metoclopramide HCl (Metoclopramide 5 Mg/Ml Sdv 2 Ml) 10 mg IVP ONCE PRN PRN Reason: N/V if zofran ineffective Metoclopramide HCl (Metoclopramide 5 Mg/Ml Sdv 2 Ml) 10 mg IVP Q5M PRN PRN Reason: Nausea unrelieved by Zofran Stop: 07/06/23 19:48 Midazolam HCl (Midazolam 1 Mg/Ml Inj 2 Ml) Confirm Administered Dose 2 mg .ROUTE .STK-MED ONE Stop: 07/05/23 19:47 Midazolam HCl (Midazolam 1 Mg/Ml Inj 2 Ml) 2 mg IVP Q5M PRN PRN Reason: Preop Anxiety Midazolam HCl (Midazolam 1 Mg/Ml Inj 5 Ml) 5 mg IVP ONCE PRN PRN Reason: Per anesthesia for block Morphine Sulfate (Morphine 4 Mg/Ml Sdv 1 Ml) 2 mg IVP Q5M PRN PRN Reason: Pain level 2-5 PACU Phase I Stop: 07/06/23 19:48 Morphine Sulfate (Morphine 4 Mg/Ml Sdv 1 Ml) 0 mg IVP Q5M PRN PRN Reason: Breakthrough Pain PACU PhaseII Morphine Sulfate (Morphine 4 Mg/Ml Sdv 1 Ml) 2 mg IVP Q2M PRN PRN Reason: Pain level 6-10 PACU Phase I Stop: 07/06/23 19:48 Neostigmine Methylsulfate (Neostigmine 1 Mg/Ml Sdv 10 Ml) Confirm Administered Dose 10 mg .ROUTE .STK-MED ONE Stop: 07/05/23 21:50 Ondansetron HCl (Ondansetron 2 Mg/Ml Sdv 2 Ml) 4 mg IVP Q15M PRN PRN Reason: Nausea/Vomiting PACU PHASE II Ondansetron HCl (Ondansetron 2 Mg/Ml Sdv 2 Ml) 4 mg IVP Q5M PRN PRN Reason: Nausea PACU Phase I Stop: 07/06/23 19:48 Ondansetron HCl (Ondansetron 2 Mg/Ml Sdv 2 Ml) 4 mg IVP Q5M PRN PRN Reason: NAUSEA AND VOMITING Ondansetron HCl (Ondansetron 2 Mg/Ml Sdv 2 Ml) Confirm Administered Dose 4 mg .ROUTE .STK-MED ONE Stop: 07/05/23 20:05 Ondansetron HCl (Ondansetron 2 Mg/Ml Sdv 2 Ml) 4 mg IVP Q4H PRN PRN Reason: NAUSEA AND VOMITING Last Admin: 07/06/23 03:10 Dose: 4 mg Propofol (Propofol 10 Mg/Ml Sdv 20 Ml) Confirm Administered Dose 200 mg .ROUTE .STK-MED ONE Stop: 07/05/23 20:05 Rocuronium Malone (Rocuronium 10 Mg/Ml Inj 5ml) Confirm Administered Dose 50 mg .ROUTE .STK-MED ONE Stop: 07/05/23 20:05 Rocuronium Malone (Rocuronium 10 Mg/Ml Inj 5ml) Confirm Administered Dose 50 mg .ROUTE .STK-MED ONE Stop: 07/05/23 20:54 Scopolamine (Scopolamine 1.5 Patch) 1 patch TRANSDERMA ONCE PRN PRN Reason: Nausea/ Vomiting Prophylaxis Succinylcholine Chloride (Succinylcholine 20 Mg/Ml Sdv 10ml) Confirm Administered Dose 200 mg .ROUTE .STK-MED ONE Stop: 07/05/23 20:05 Allergies amoxicillin Allergy (Severe, Verified 03/27/23 08:16) ALGY-Anaphylaxis erythromycin base Allergy (Severe, Verified 03/27/23 08:16) ALGY-Anaphylaxis Sulfa (Sulfonamide Antibiotics) Allergy (Severe, Verified 03/27/23 08:16) ALGY-Anaphylaxis Home Medications clonazepam 1 mg tablet (Klonopin) 1 mg PO .bedtime #30 tabs 03/27/23 [Rx Confirmed 07/06/23] Discharge Plan Discharge Patient Disposition: Xfer Short-Term Hosp Condition: Stable Prescriptions: No Action clonazepam [Klonopin] 1 mg tablet 1 mg PO .bedtime Qty: 30 4RF Rx Instructions: Take one tablet at bedtime Discharge Orders: Discharge Order (Routine); Ordered 07/06/23 Ordered By: James Billy Referrals: David Murillo MD [Physician] - Atul Garcia MD [Referring] - James Billy MD [Physician] - (2 weeks) Discharge Activity: Limit activity as instructed Patient Instructions: Opioid Safety Activity Restrictions/Additional Instructions: Patient to be transferred to higher level of care, after treatment at outside hospital, he should continue regular postoperative instructions from the general surgery standpoint including active ambulation, limited heavy lifting and wound care with soap and water. Transfer Attestations Time Spent in Transfer Care: greater than 30 min Quality Metrics Clinical Quality Measures [ No reported AMI, CVA or VTE this stay] Coding Level of Care Code 11752 Diagnoses Acute perforated appendicitis K35.32 Hematuria detected by chemical testing R31.9 Ureteral obstruction, right N13.5
== END 2023-07-06 17:57 | disposition short-term general hospital (02) | DRG 331 ==
LOC: ER 18:38 → OR 19:30 → MEDSURG 19:48
PROVIDERS: Admitting Provider Surgery; Emergency Provider Internal Medicine; Visit Provider Surgery
PROC: 0DTJ4ZZ Resection of Appendix, Percutaneous Endoscopic Approach (ICD-10-PCS; CPT 44970; principal; 2023-07-05 07:50)
DX: K35.33 Acute appendicitis with perforation, localized peritonitis, and gangrene, with abscess (principal); F41.1 Generalized anxiety disorder; F17.220 Nicotine dependence, chewing tobacco, uncomplicated; N13.5 Crossing vessel and stricture of ureter without hydronephrosis; R31.9 Hematuria, unspecified; K38.1 Appendicular concretions
CPT/HCPCS: 36415; 51702; 74177; 74178; 80048; 80053; 81001; 83690; 85025; 87040; 88304; 96365; 96367; 96375; 99285; J0131; J0330; J0744; J1100; J1170; J1885; J2250; J2405; J2704; J2710; J3010; J3490; J7120; Q9967

== ENCOUNTER 2023-07-10 16:44 | Emergency (ER) | payer SELFPAY ==
[2023-07-10 16:50] VITALS: BP 158/100; PULSE 52; RESP 18; TEMP 36.6; O2SAT 96; BMI 31.1
[2023-07-10 17:25] VITALS: BP 124/76; PULSE 56; RESP 15; O2SAT 95
[2023-07-10 17:29] LABS: Hematocrit 40.4 % (37-53); Mean Corpuscular HGB Conc 33.4 g/dL (30-55); Mean Corpuscular Hemoglobin 29.8 pg (27-33); Mean Corpuscular Volume 89.2 fl (82-101); Mean Platelet Volume 9.7 fL (7.4-10.4); Platelet Count 393 10^3/cmm (157-399); Red Blood Count 4.53 10^6/uL (3.85-5.65); White Blood Count 11.16 10^3/uL (3.29-11.43)
[2023-07-10 17:52] LABS: Alanine Aminotransferase 30 U/L (0-41); Alkaline Phosphatase 55 U/L (40-130); Anion Gap 16.2 (5-19); Aspartate Amino Transferase 21 U/L (0-40); Blood Urea Nitrogen 25 mg/dL (6-20); Calcium 9.3 mg/dL (8.5-10.5); Carbon Dioxide 25 mmol/L (22-29); Chloride 104 mmol/L (98-107); Creatinine Clr Calc Pharmacy 151.2382; Globulin 3.4 g/dL (1.3-4.6); Glomerular Filtration Rate 99.8 mL/min (90-130); Glucose 103 mg/dL (65-115); Lipase 17 U/L (13-60); Osmolality Calculated 297 mOsm/kg (285-295); Potassium 4.2 mmol/L (3.5-5.1); Sodium 141 mmol/L (136-145); Total Bilirubin 0.2 mg/dL (0.15-1.2); Total Protein 7.4 g/dL (6.6-8.7)
[2023-07-10 17:55] LABS: Slide Review Slide Review Perform
[2023-07-10 17:56] LABS: Total Cells Counted 100 (0-100)
[2023-07-10 18:01] LABS: Absolute Eosinophils 0.4 10^3/cmm (0.0-0.7); Absolute Neutrophil 6.4 10^3/cmm (1.4-6.5); Absolute Segmented Neutrophil 6.2 10/cmm (1.6-7.1); Band Neutrophils Absolute 0.1 10^3/cmm (0.0-1.2); Eosinophils 4 %; Giant Platelets 1+; Lymphocytes 20 %; Lymphocytes Absolute 2.6 10^3/cmm (1.2-3.4); Platelet Estimate Increased (Normal); Segmented Neutrophils 56 %
[2023-07-10 18:05] VITALS: O2SAT 93
[2023-07-10 18:23] LABS: Protein Urine 2+ (Negative); Specific Gravity, Urine 1.025 (1.005-1.030); Urine Appearance Clear (CLEAR); Urine Color Amber (Yellow); pH Urine 5 (5-7)
[2023-07-10 18:24] LABS: Add Urine Microscopic? YES; Bilirubin Urine Neg (Negative); Blood Urine 3+ (Negative); Glucose Urine UA Norm (Normal); Ketones Urine 1+ (Negative); Leukocyte Esterase Urine 1+ (Negative); Nitrate Urine Negative (Negative); Urobilinogen Urine 1 mg/dL (Negative)
[2023-07-10 18:30] LABS: Add Urine Culture? Yes; Bacteria Urine TRACE /hpf; Hyaline Casts Urine 0-4 /lpf; Mucus Urine 3+ /hpf; RBC Urine >100 /hpf (0-2); Squamous Epithelial Cell Urine 0-4 /hpf (0-5)
--- NOTE | 2023-07-10 18:36 | ED_ITS ---
HPI - Abdominal Pain 2 General: Chief Complaint: Abdominal Pain Stated Complaint: abd pain, light headed Time Seen by Provider: 07/10/23 17:12 History of Present Illness: Patient presents to the ER with sudden onset right flank pain that radiated down to his groin. In the last several days patient has had a ruptured appendix and was transferred to [place] after an appendectomy that possibly nicked his right ureter. Patient was seen by urology and had a stent placed and was discharged on Saturday. For the last 3 days patient has not not had any problems at all and not had to take any pain medicine. But today he had a sudden onset pain of his right flank that radiated down to his groin for about an hour. He describes it as sharp and stabbing but did not let up and then come back again. The second time it come back he came to the ER. By the time of the evaluation he was pain-free again. Patient is already seen his surgeon took out his appendix and everything is going good from there and he has a follow-up with the urologist. Review of Systems 2 General: Reports: 10 or more systems reviewed and unremarkable except in HPI and below PFSH ED 2 PFSH: Medical History Psychiatric care Nicotine dependence, chewing tobacco, uncomplicated Generalized anxiety disorder Surgical History History of laparoscopic appendectomy 07/05/23 Dr Billy Family History Denies family history of Anesthesia complication Social History Alcohol intake: current Alcohol intake frequency: holidays/special occasions only Alcohol type: beer Substance/Drug Use: never Adopted: No Caregiver/support person: No Lives independently: No Household members: spouse and children Housing: House Marital status: Number of children: 2 Current occupational status: employed Current gender identity: Male Physical Exam 2 Const: COMMON NORMALS: no acute distress, average body habitus, patient oriented x3, no limitations, healthy appearing, alert and well nourished HENMT: COMMON NORMALS: normocephalic, atraumatic, hearing grossly normal bilaterally, external ears normal, Normal external nose present, moist oral mucous membranes and oropharynx normal HEAD & SCALP: normocephalic and atraumatic NOSE: Normal external nose present EXTERNAL EAR: Yes external ears normal Neck/C-Spine: COMMON NORMALS: no JVD Chest: COMMONS NORMALS: normal inspection of the chest and normal palpation of entire chest wall Resp: COMMON NORMALS: normal respiratory effort, No retractions, No use of accessory muscles and clear to auscultation bilaterally AUSCULTATION: clear to auscultation bilaterally Cardio: COMMON NORMALS: no JVD, regular rate, regular rhythm, S1 normal heart sound present, S2 normal heart sound present, No gallops present (Cardio), No clicks present (Cardio), No murmurs present (Cardio) and No rub (Cardio) R ATE: regular rate RHYTHM: regular rhythm HEART SOUNDS: S1 normal heart sound present and S2 normal heart sound present GI: COMMON NORMALS: Normal to inspection, nondistended, normoactive bowel sounds present, Soft to palpation, non-tender, No hepatosplenomegaly present and no masses PALPATION: Yes Soft to palpation and Yes No hepatosplenomegaly present Neuro: COMMON NORMALS: patient oriented x3 SENSORIUM/ORIENTATION: Yes alert Course 2 Vital Signs: Vital signs: Vital Signs Temperature 97.9 F 07/10/23 16:50 Pulse Rate 56 L 07/10/23 17:25 Respiratory Rate 15 07/10/23 17:25 Blood Pressure 124/76 07/10/23 17:25 Pulse Oximetry 93 07/10/23 18:05 Oxygen Delivery Me thod Room Air 07/10/23 18:05 MDM - Abdominal Pain Medical Decision Making Patient is a right ureteral stent. Patient has had intermittent flank pain that radiated down to his groin. Patient is also had his appendix out. Patient had lab work that included CBC CMP lipase and urinalysis. All of which was essentially unremarkable except for his urinalysis did show blood 1+ leukocyte Estrace and 5-10 white blood cells. Patient be placed on antibiotic for this and told to keep his appointment with his surgeon and urologist. Patient be discharged from the ER. Differential Diagnosis Likely abdominal pain; Unlikely acute appendicitis, calculus of kidney, constipation, diverticulitis, endometriosis, gastroenteritis, pancreatitis or small bowel obstruction Medical Records I reviewed the patient's medical records. Lab Data I reviewed the patient's lab results. 07/10/23 17:20 07/10/23 17:20 Labs/Radiology: Laboratory Results WBC 11.16 10^3/uL (3.29-11.43) 07/10/23 17:20 RBC 4.53 10^6/uL (3.85-5.65) 07/10/23 17:20 Hgb 13.50 g/dL (11.27-16.99) 07/10/23 17:20 Hct 40.4 % (37-53) 07/10/23 17:20 MCV 89.2 fl (82-101) 07/10/23 17:20 MCH 29.8 pg (27-33) 07/10/23 17:20 MCHC 33.4 g/dL (30-55) 07/10/23 17:20 RDW 12.0 % (12.1-15.1) L 07/10/23 17:20 Plt Count 393 10^3/cmm (157-399) 07/10/23 17:20 MPV 9.7 fL (7.4-10.4) 07/10/23 17:20 Lymph % (Auto) Not Reportable 07/10/23 17:20 Benzie % (Auto) Not Reportable 07/10/23 17:20 Lymph # (Auto) Not Reportable 07/10/23 17:20 Benzie # (Auto) Not Reportable 07/10/23 17:20 Total Counted 100 (0-100) 07/10/23 17:20 Atypical Lymphs % 3.0 % (0-5) 07/10/23 17:20 Absolute Neutrophils 6.4 10^3/cmm (1.4-6.5) 07/10/23 17:20 Segmented Neutrophils 56 % 07/10/23 17:20 Abs Segm Neuts (Man) 6.2 10/cmm (1.6-7.1) 07/10/23 17:20 Band Neutrophils 1.0 % 07/10/23 17:20 Abs Band Neuts (Man) 0.1 10^3/cmm (0.0-1.2) 07/10/23 17:20 Absolute Lymphocytes 2.6 10^3/cmm (1.2-3.4) 07/10/23 17:20 Lymphocytes (Manual) 20 % 07/10/23 17:20 Monocytes (Manual) 9.0 % 07/10/23 17:20 Absolute Monocytes 1.0 10^3/cmm (0.1-0.6) H 07/10/23 17:20 Eosinophils (Manual) 4 % 07/10/23 17:20 Absolute Eosinophils 0.4 10^3/cmm (0.0-0.7) 07/10/23 17:20 Basophils (Manual) 0.0 % 07/10/23 17:20 Absolute Basophils 0.0 10^3/cmm (0.0-0.2) 07/10/23 17:20 Metamyelocytes 5.0 % 07/10/23 17:20 Myelocytes 1.0 % 07/10/23 17:20 Promyelocytes 1.0 % 07/10/23 17:20 Platelet Estimate Increased (Normal) 07/10/23 17:20 Giant Platelets 1+ H 07/10/23 17:20 Sodium 141 mmol/L (136-145) 07/10/23 17:20 Potassium 4.2 mmol/L (3.5-5.1) 07/10/23 17:20 Chloride 104 mmol/L (98-107) 07/10/23 17:20 Carbon Dioxide 25 mmol/L (22-29) 07/10/23 17:20 Anion Gap 16.2 (5-19) 07/10/23 17:20 BUN 25 mg/dL (6-20) H 07/10/23 17:20 Creatinine 0.9 mg/dL (0.7-1.2) 07/10/23 17:20 GFR Calculation 99.8 mL/min (90-130) 07/10/23 17:20 Glucose 103 mg/dL (65-115) 07/10/23 17:20 Calculated Osmolality 297 mOsm/kg (285-295) H 07/10/23 17:20 Calcium 9.3 mg/dL (8.5-10.5) 07/10/23 17:20 Total Bilirubin 0.2 mg/dL (0.15-1.2) 07/10/23 17:20 AST 21 U/L (0-40) 07/10/23 17:20 ALT 30 U/L (0-41) 07/10/23 17:20 Alkaline Phosphatase 55 U/L (40-130) 07/10/23 17:20 Total Protein 7.4 g/dL (6.6-8.7) 07/10/23 17:20 Albumin 4.0 g/dL (3.5-5.2) 07/10/23 17:20 Globulin 3.4 g/dL (1.3-4.6) 07/10/23 17:20 Lipase 17 U/L (13-60) 07/10/23 17:20 Urine Color Alka (Yellow) 07/10/23 18:12 Urine Appearance Clear (CLEAR) 07/10/23 18:12 Urine pH 5 (5-7) 07/10/23 18:12 Ur Specific [place] 1.025 (1.005-1.030) 07/10/23 18:12 Urine Protein 2+ (Negative) H 07/10/23 18:12 Urine Glucose (UA) Norm (Normal) 07/10/23 18:12 Urine Ketones 1+ (Negative) H 07/10/23 18:12 Urine Blood 3+ (Negative) H 07/10/23 18:12 Urine Nitrate Negative (Negative) 07/10/23 18:12 Urine Bilirubin Neg (Negative) 07/10/23 18:12 Urine Urobilinogen 1 mg/dL (Negative) H 07/10/23 18:12 Ur Leukocyte Esterase 1+ (Negative) H 07/10/23 18:12 Urine RBC >100 /hpf (0-2) H 07/10/23 18:12 Urine WBC 5-10 /hpf (0-5) H 07/10/23 18:12 Ur Squamous Epith Cells 0-4 /hpf (0-5) H 07/10/23 18:12 Amorphous Sediment Not Reportable 07/10/23 18:12 Urine Bacteria Trace /hpf (NONE) 07/10/23 18:12 Hyaline Casts 0-4 /lpf H 07/10/23 18:12 Urine Mucus 3+ /hpf 07/10/23 18:12 All radiology interpretation(s) finalized by discharge Discharge Plan Discharge Patient Disposition: Home Clinical Impression: Ureteral stent present Urinary tract infection Qualifiers: Urinary tract infection type: acute cystitis Hematuria presence: with hematuria Qualified Code(s): N30.01 - Acute cystitis with hematuria Condition: Stable Prescriptions: New Macrobid 100 mg capsule 100 mg PO BID 7 Days Qty: 14 0RF Rx Instructions: must administer with a meal/food tramadol 50 mg tablet 50 mg PO Q8H PRN (Reason: pain) Qty: 10 0RF No Action metronidazole 500 mg tablet 500 mg PO Q8H 7 Days Qty: 21 0RF ciprofloxacin HCl 500 mg tablet 500 mg PO BID 7 Days Qty: 14 0RF polyethylene glycol 3350 [Miralax] 17 gram/dose powder 17 g PO DAILY 5 Days Qty: 238 0RF clonazepam [Klonopin] 1 mg tablet 1 mg PO .bedtime Qty: 30 4RF Rx Instructions: Take one tablet at bedtime Discharge Orders: Discharge ED (Routine); Ordered 07/10/23 Ordered By: Vazquez Murphy Patient Instructions: Urinary Tract Infection - Men Activity Restrictions/Additional Instructions: Your urine showed you may have the beginnings of a urinary tract infection secondary to being irritated by the stent. Continue your Cipro and Flagyl as previously prescribed. we will place you on Macrobid. We will wait for the culture which should come back in 2 to 3 days to tell us exactly which bacteria exactly which antibiotic will cover. If anything needs to be changed you will be called. Otherwise please follow-up with your family practice physician and/or surgeons as previously scheduled. Coding Level of Care Code ED Printer'S Devil for Annie Murillo
[2023-07-10] MEDS: TRAMadol 50 mg Tablet PO (19:24)
== END 2023-07-10 19:26 | disposition home or self-care (01) ==
PROVIDERS: Emergency Medicine; Emergency Provider Emergency Medicine
DX: N30.01 Acute cystitis with hematuria (principal); Z96.0 Presence of urogenital implants
CPT/HCPCS: 80053; 81001; 83690; 85007; 85025; 87086; 99283

== ENCOUNTER 2025-02-25 08:31 | Emergency (ER) | payer SELFPAY ==
--- OUTSIDE RECORDS SUMMARY | 2025-02-25 08:39 | XMS_ITS | Clinical Summary ---
Author Organization [facility] Address [address] Attn: [place] [address] Care Team Providers Care Psychiatric Nurse Name Role Phone Unavailable Primary Care Provider Unavailabl e Allergies Active Allergy Reactions Criticality Noted Date Comments Amoxicillin Swelling Low 07/06/2023 Erythromycin Swelling Low 07/06/2023 Sulfa (Sulfonamide Antibiotics) Swelling Low 06/21 Medications clonazePAM (KlonoPIN) 1 mg tablet Take 1 mg by mouth 2 times daily. Active Active Problems Problem Noted Date Diagnosed Date Hematuria 07/07/2023 Perforated appendix 07/07/2023 Anxiety 07/07/2023 S/P appendectomy 07/07/2023 Immunizations Immunization Administration Dates Next Due (M-M-R II/PRIORIX)(12 MO UP) MEASLES, MUMPS AND RUBELLA VIRUS VACCINE, 0.5 ML IM/SUBCUT 10/20/1997,02/19/1995 Dt Dtp Dtap Vaccine 10/20/1997, 6,02/19/1995,1993,01/16/1994 HIB, Unspecified Formulation 10/20/1997, 02/19/1995,03/19/1994,1993 Hepatitis B Vaccine 12/24/1995,03/19/1994,1993 IPV/OPV 10/20/1997, 5,03/19/1994,1993 Social History Tobacco Use Types Packs/Day Years Used Date Smoking Tobacco: Never Assessed Tobacco Cessation:Counseling Given: Not Answered Sex and Gender Information Value Date Recorded Sex Assigned at Not on file Legal Sex 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 Gender Identity Not on file Sexual Orientation Not on file Last Filed Vital Signs Vital Sign Reading Time Taken Comments Blood Pressure 119/72 07/20/2023 10:48 AM LABOR ARBITRATOR HEARING OFFICE Pulse 52 07/20/2023 10:48 AM LABOR ARBITRATOR HEARING OFFICE Temperature 36.1 C (96.9 F) 07/20/2023 10:48 AM LABOR ARBITRATOR HEARING OFFICE Respiratory Rate 18 07/20/2023 10:4 8 AM LABOR ARBITRATOR HEARING OFFICE Oxygen Saturation 96% 07/20/2023 10: 48 AM LABOR ARBITRATOR HEARING OFFICE Inhaled Oxygen Concentration - - Weight 104.7 kg (230 lb 13.2 oz) 07/20/2023 6:40 AM LABOR ARBITRATOR HEARING OFFICE Height 182.9 cm (6') 07/20/2023 6:40 AM LABOR ARBITRATOR HEARING OFFICE Body Mass Index 31.31 07/20/2023 6:40 AM LABOR ARBITRATOR HEARING OFFICE Plan of Treatment Health Maintenance Due Date Last Done Comments DTAP/TDAP/TD VACCINES (6 - Tdap) 2004 10/20/1997, 12/24/1995, 02/19/1995, Additional history exists HPV VACCINES (1 - Male 3-dos e series) 2008 INFLUENZA VACCINE (#1) 2025 HEPATITIS B VACCINES Completed 12/24/1995, 03/19/1994, 01/16/1994 Medical Devices Explanted Type Area Switch Foreman Device Identifier Shelf Expiration Date Model / Serial / Lot Stent Contour [id number] - [id number] Implanted:Qty: 1 on 07/06/2023 by William Maynard MD at [facility] Explanted:Qty: 1 on 07/20/2023 at [facility] Stent Right: Ureter [employer]/HAND QUILTER [id number] 02/24/2026 [id number] / / [id number] Insurance RX [employer] (INTERNAL) [facility] Internal Plans Advance Directives For more information, please contact: [phone] * Full Code (Latest Code Status on File) Date Activated Date Inactivated Comments 07/20/2023 7:05 AM 07/20/2023 1:56 PM * Full Code Date Activated Date Inactivated Comments 07/06/2023 9:01 PM 07/07/2023 5:58 PM
--- OUTSIDE RECORDS SUMMARY | 2025-02-25 08:39 | XMS_ITS | Encounter Summary ---
Author Organization [facility] Address [address] [place] [address] Care Team Providers Care Steward/Stewardess Second Name Role Phone Unavailable Primary Care Provider Unavailabl e Encounter Details Date Type Department Care Team (Late st Contact Info) Description 04/15/2005 Emergency [facility] Emergency Department [address] 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7 12.0 - 14.4 g/dL INTERFACE SYSTEM HEMATOCRIT 38.6 35.0 - 45.0 % INTERFACE SYSTEM MCV 86.0 78.0 - 98.0 Fl INTERFACE SYSTEM MCH 28.3 26.0 - 32.0 pg INTERFACE SYSTEM MCHC 32.9(L) 33.0 - 35.0 g/dL INTERFACE SYSTEM RDW 11.9 11.0 - 14.5 % INTERFACE SYSTEM PLATELETS 276 140 - 440 K/ul INTERFACE SYSTEM MPV 10.4 8.9 - 12.8 Fl INTERFACE SYSTEM NEUTROPHILS 51.1 42.2 - 75.2 % INTERFACE SYSTEM LYMPHOCYTES 41.2 28.0 - 48.0 % INTERFACE SYSTEM MONOCYTES 5.3(H) 4.0 - 5.0 % INTERFACE SYSTEM EOSINOPHILS 1.4 0.0 - 7.0 % INTERFACE SYSTEM BASOPHILS 0.8 0.0 - 1.0 % INTERFACE SYSTEM NEUTROPHIL ABSOLUTE 3.4 2.0 - 8.0 K/uL INTERFACE SYSTEM LYMPHOCYTE ABSOLUTE 2.7 1.2 - 4.0 K/ul INTERFACE SYSTEM MONOCYTE ABSOLUTE 0.4 0.1 - 0.6 K/ul INTERFACE SYSTEM EOSINOPHIL ABSOLUTE 0.1 0.0 - 0.7 K/ul INTERFACE SYSTEM BASOPHILS ABSOLUTE 0.1 0.0 - 0.2 K/ul INTERFACE SYSTEM 04/15/2005 3:31 PM CDT Yossi Irizarry DO HEMATOLOGY ORDERABLES Final Result INTERFACE SYSTEM Refer to clinic/hospital department * (ABNORMAL) URINALYSIS (04/15/2005 1:28 PM CDT) COLOR UA Yellow Straw INTERFACE SYSTEM CLARITY UA Clear Clear INTERFACE SYSTEM LEUKOCYTE ESTERASE UA NEGATIVE NEGATIVE INTERFACE SYSTEM NITRITE UA NEGATIVE NEGATIVE INTERFACE SYSTEM PH UA 6.5 5.0 - 9.0 INTERFACE SYSTEM PROTEIN UA NEGATIVE NEGATIVE INTERFACE SYSTEM Comment: As of 05 positive protein results obtained on routine urinalysis will not be confirmed by sulfosalicylic acid (SSA) precipitation. Current methodology for protein detection is highly sensitive for detection of albumin; therefore, confirmation is not necessary. GLUCOSE UA NEGATIVE NEGATIVE INTERFACE SYSTEM KETONES UA NEGATIVE NEGATIVE INTERFACE SYSTEM UROBILINOGEN UA 0.2 0.2 INTE RFACE SYSTEM BILIRUBIN UA NEGATIVE NEGATIVE INTERFA CE SYSTEM BLOOD UA NEGATIVE NEGATIVE INTERFACE SYSTEM SPECIFIC GRAVITY UA 1.020 1.005 - 1.030 INTERFACE SYSTEM MICRO EXAM Yes(A) No INTERFACE SYSTEM 04/15/2005 1:28 PM CDT us Physician Sj Ed URINE ORDERABLES Final Result Performing Organization Address [facility] Phone Number INTERFACE SYSTEM Refer to clinic/hospital department * URINALYSIS MICROSCOPY ONLY (04/15/2005 1:28 PM CDT) WBC URINE None Seen 0 - 2 INTERFACE SYSTEM RBC UA None Seen 0 - 2 INTERFACE SYSTEM HYALINE CAST None Seen 0 - 2 INTERFA CE SYSTEM BACTERIA UA None Seen None Seen INTERFAC E SYSTEM 04/15/2005 1:28 PM CDT us Physician Sj Ed URINE ORDERABLES Final Result Performing Organization Address [facility] Phone Number INTERFACE SYSTEM Refer to clinic/hospital department documented in this encounter Visit Diagnoses Diagnosis Orchitis and epididymitis, unspecified- Primary documented in this encounter
--- OUTSIDE RECORDS SUMMARY | 2025-02-25 08:40 | XMS_ITS | Encounter Summary ---
Author Organization [facility] Address [address] [place] [address] Care Team Providers Care Circuit Manager Name Role Phone Unavailable Primary Care Provider Unavailabl e Encounter Details Date Type Department Care Team (Late st Contact Info) Description 11/02/1999 Outpatient Historical [facility], N[facility] and Th[facility] [address] [place] 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
--- OUTSIDE RECORDS SUMMARY | 2025-02-25 08:40 | XMS_ITS | Clinical Summary ---
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
--- OUTSIDE RECORDS SUMMARY | 2025-02-25 08:40 | XMS_ITS | Encounter Summary ---
Author Organization [facility] Address [address] 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
--- OUTSIDE RECORDS SUMMARY | 2025-02-25 08:40 | XMS_ITS | Encounter Summary ---
Author Organization [facility] Address [address] [place] [address] Care Team Providers Care Dental Secretary Name Role Phone Unavailable Primary Care Provider Unavailabl e Encounter Details Date Type Department Care Team (Latest Contact Info) Description 05/19/1998 Outpatient Historical [facility] [place] [address] [place] [phone] Incontinence of feces (Primary Dx) Social History Tobacco Use Types Packs/Day Years Used Date Smoking Tobacco: Never Assessed Sex and Gender Information Value Date Recorded Sex Assigned at Not on file Legal 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
--- OUTSIDE RECORDS SUMMARY | 2025-02-25 08:40 | XMS_ITS | Encounter Summary ---
Author Organization [facility] Address [address] [place] [address] Care Team Providers Care White Lead Filterer Name Role Phone Unavailable Primary Care Provider Unavailabl e Encounter Details Date Type Department Care Team (Latest Contact Info) Description 12/06/1999 Outpatient Historical [facility] Ear, Nose and Throat 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
--- OUTSIDE RECORDS SUMMARY | 2025-02-25 08:40 | XMS_ITS | Encounter Summary ---
Author Organization [facility] Address [address] [place] [address] Care Team Providers Care School Photographs Detailer Name Role Phone Unavailable Primary Care Provider Unavailabl e Encounter Details Date Type Department Care Team (Latest Contact Info) Description 01/04/2000 Outpatient Historical [facility] Ear, Nose and Throat 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
--- OUTSIDE RECORDS SUMMARY | 2025-02-25 08:40 | XMS_ITS | Encounter Summary ---
Author Organization [facility] Address [address] 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
--- OUTSIDE RECORDS SUMMARY | 2025-02-25 08:40 | XMS_ITS | Encounter Summary ---
Author Organization [facility] Address [address] 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
--- OUTSIDE RECORDS SUMMARY | 2025-02-25 08:40 | XMS_ITS | Encounter Summary ---
Author Organization [facility] Address [address] [place] [address] Care Team Providers Care Mandrel Press Hand Name Role Phone Unavailable Primary Care Provider Unavailabl e Encounter Details Date Type Department Care Team (Latest Contact Info) Description 12/26/[address] [facility] [address] [place] 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
--- OUTSIDE RECORDS SUMMARY | 2025-02-25 08:40 | XMS_ITS | Encounter Summary ---
Author Organization [facility] Address [address] [place] [address] Care Team Providers Care Taker Off Braker Machine Name Role Phone Unavailable Primary Care Provider Unavailabl e Encounter Details Date Type Department Care Team (Latest Contact Info) Description 11/02/1999 Outpatient Historical [facility] Ear, Nose and Throat [address] [place] 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
--- OUTSIDE RECORDS SUMMARY | 2025-02-25 08:40 | XMS_ITS | Patient Health Record ---
Author Organization [facility] Address [address] [place] [address] Care Team Providers Care Parts Identification Technician Name Role Phone Atul Garcia Unavailable [phone] Allergies Allergen (clinical drug ingredient) Drug/Non Drug Allergy documented on EMR Reaction Allergy Type Onset Date Status amoxicillin Amoxicillin Unknown Drug Allergy Act vish Substance with penicillin structure and antibacterial mechanism of action (substance) Penicillins Unknown Drug Allergy Active Substance with sulfonamide structure and antibacterial mechanism of action (substance) Sulfa Antibiotics Unknown Drug Allergy Active Reason For Referral No Information Medications Medication SIG (Take, Route, Frequency, Duration) Notes Start Date End Date Status clonazePAM 0.5 MG Tablet Take 1 tablet by mouth in the am and 1 tablet at hs Oral; Duration: 30 Clonazepam 0.5mg Tablet Take 1 tablet by mouth in the am and 1 tablet at hs 02/05/2014 0 Active Methylphenidate HCl Take 2 tablets by mouth daily; Duration: 30 *please review for potential update for e-prescription and drug interaction check* Methylphenidate HCl 54mg Tablets, Extended Release Take 2 tablets by mouth daily 02/05/2014 0 Active RisperDAL 0.5 MG Tablet Take 1 tablet by mouth every am and 3 tablets by mouth at hs Oral; Duration: 30 Risperdal 0.5mg Tablet Take 1 tablet by mouth every am and 3 tablets by mouth at hs 02/05/2014 0 Active Escitalopram Oxalate 20 MG Tablet Take 1 tablet(s) by mouth daily Oral; Duration: 30 Escitalopram Oxalate 20mg Tablet Take 1 tablet(s) by mouth daily 02/05/2014 0 Active Social History Social History Additional Details Category Social Info Options Details zzMigrated Social History Migrated Social History Advance Directive: Current and Verified Signed on 02/05/2014 Organ Donation: Patient refuses Organ Donation Denied Portal User Patient declined portal account Highest Level of Education High School Education (9-12) Completed 12th grade only Problems Problem Type SNOMED Code ICD Code Onset Dates Problem Status W/U Status Risk Notes Problem Acute peptic ulcer, without mention of obstruction (533.30) 4 Problem resolved confirmed [id number] 1- Plan Of Treatment No Information Medical (General) History Surgical History Surgery Date(Month/Year) Positive forHernia Repair: a t age 1;,Testicular surgery at age 9; andshoulder surgery- 09/2013;;
--- OUTSIDE RECORDS SUMMARY | 2025-02-25 08:40 | XMS_ITS | Encounter Summary ---
Author Organization [facility] Address [address] [place] [address] Care Team Providers Care Paramedic Name Role Phone Unavailable Primary Care Provider Unavailabl e Encounter Details Date Type Department Care Team (Latest Contact Info) Description 06/02/1998 Outpatient Historical [facility] [place] [address] [place] [phone] Lymphadenitis, unspecified, except mesenteric (Primary Dx); Acute upper respiratory infections of unspecified site Social History Tobacco Use Types Packs/Day Years Used Date Smoking Tobacco: Never Assessed Sex and Gender Information Value Date Recorded Sex Assigned at Not on file 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
--- OUTSIDE RECORDS SUMMARY | 2025-02-25 08:40 | XMS_ITS | Encounter Summary ---
Author Organization 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
[2025-02-25 08:57] VITALS: BP 143/83; PULSE 104; RESP 20; TEMP 38.1; O2SAT 93
--- NOTE | 2025-02-25 08:58 | ED_ITS ---
HPI - General Adult 2 General: Chief complaint: Abdominal Pain Stated complaint: lower back pain, vomiting Time Seen by Provider: 02/25/25 08:38 History of Present Illness: 29-year-old male presents emergency room clinic complaining of left flank pain. Is been going on for the last 2 days. He said nausea vomiting and diarrhea denies hematochezia hematemesis coffee-ground emesis no dysuria urgency or frequency no hematuria he does states urine is been rather concentrated. He has been running low-grade fever as well Associated symptoms: Deny chest pain, dyspnea or rash Related Data Home Medications ?Medication ?Instructions ?Recorded ?Confirmed acetaminophen 325 mg tablet 325 mg PO QID PRN Fever Or Pain 02/25/25 02/25/25 (Tylenol) Previous Rx's ?Medication ?Instructions ?Recorded clonazepam 1 mg tablet (Klonopin) 1 mg PO .bedtime #30 tabs 02/11/25 ondansetron HCl 4 mg tablet 4 mg PO Q6H PRN nausea and 02/25/25 vomiting #20 tabs Allergies Allergy/AdvReac Type Severity Reaction Status Date / Time amoxicillin Allergy Severe ALGY-Anaphy Verified 02/11/25 09:27 laxis erythromycin base Allergy Severe ALGY-Anaphy Verified 02/11/25 09:27 laxis Sulfa (Sulfonamide Allergy Severe ALGY-Anaphy Verified 02/11/25 09:27 Antibiotics) laxis Review of Systems 2 Const: Denies: fever(s) or chills Card: Denies: chest pain Resp: Denies: dyspnea GI: Denies: abdominal pain : Reports: flank pain (left); Denies: dysuria, urinary frequency or urinary urgency Musc: Denies: neck pain or back pain Skin/Breast: Denies: rash PFSH ED 2 PFSH: Medical History Psychiatric care Nicotine dependence, chewing tobacco, uncomplicated Generalized anxiety disorder Surgical History History of laparoscopic appendectomy 07/05/23 Dr Billy Family History Denies family history of Anesthesia complication Social History Alcohol intake: current Alcohol intake frequency: holidays/special occasions only Alcohol type: beer Substance/Drug Use: never Adopted: No Caregiver/support person: No Lives independently: No Household members: spouse and children Housing: House Marital status: Number of children: 2 Current occupational status: employed Current gender identity: Male Physical Exam 2 Const: GENERAL APPEARANCE: cooperative ORIENTATION/CONSCIOUSNESS: Yes awake, Yes oriented to person, Yes oriented to place and Yes oriented to time HENMT: COMMON NORMALS: normocephalic, atraumatic and hearing grossly normal bilaterally HEAD & SCALP: normocephalic and atraumatic Resp: COMMON NORMALS: normal respiratory effort, No retractions, No use of accessory muscles and clear to auscultation bilaterally AUSCULTATION: clear to auscultation bilaterally Cardio: COMMON NORMALS: regular rate, regular rhythm and No murmurs present (Cardio) RATE: regular rate RHYTHM: regular rhythm GI: COMMON NORMALS: Soft to palpation and No hepatosplenomegaly present A USCULTATION: Yes normoactive bowel sounds PALPATION: Yes Soft to palpation, No Tenderness to palpation present (GI), No Guarding due to palpation present (GI) and Yes No hepatosplenomegaly present Extremity: COMMON NORMALS: normal to inspection, capillary refill normal, no clubbing, cyanosis or edema, no calf tenderness and no pedal edema Neuro: SENSORIUM/ORIENTATION: Yes oriented to person, Yes oriented to place and Yes oriented to time Skin: COMMON NORMALS: no rashes or lesions noted GENERAL SKIN EXAM: no rashes or lesions noted Course 2 Vital Signs: Vital signs: Vital Signs Temperature 100.6 F H 02/25/25 08:57 Pulse Rate 81 02/25/25 11:35 Respiratory Rate 20 H 02/25/25 08:57 Blood Pressure 143/83 02/25/25 08:57 Pulse Oximetry 96 02/25/25 11:35 Oxygen Delivery Me thod Room Air 02/25/25 08:57 MDM - General Adult Medical Decision Making CT showed left lower lobe pneumonia confirmed on chest x-ray no leukocytosis. Will start on Levaquin 750 p.o. daily for 7 days recheck with primary care if not improving Medical Records I reviewed the patient's medical records. Lab Data I reviewed the patient's lab results. 02/25/25 09:10 08/07/25 09:10 Radiology Impressions Abdomen/Pelvis CT 02/25/25 09:18 IMPRESSION: 1. LEFT lower lobe pneumonia. 2. No renal obstruction or perinephric stranding. 3. Prior appendectomy. 4. No ascites. 5. Mild splenomegaly. Chest X-Ray 02/25/25 10:59 IMPRESSION: Potential left lower lung abnormality as above. As clinically warranted consider repeat examination with better inspiratory effort. Laboratory Results WBC 7.50 10^3/uL (3.29-11.43) 02/25/25 09:10 RBC 4.78 10^6/uL (3.85-5.65) 02/25/25 09:10 Hgb 14.10 g/dL (11.27-16.99) 02/25/25 09:10 Hct 41.7 % (37-53) 02/25/25 09:10 MCV 87.2 fl (82-101) 02/25/25 09:10 MCH 29.5 pg (27-33) 02/25/25 09:10 MCHC 33.8 g/dL (30-55) 02/25/25 09:10 RDW 11.9 % (12.1-15.1) L 02/25/25 09:10 Plt Count 186 10^3/cmm (157-399) 02/25/25 09:10 MPV 10.3 fL (7.4-10.4) 02/25/25 09:10 Neut % (Auto) 81.5 % 02/25/25 09:10 Lymph % (Auto) 9.3 % 02/25/25 09:10 [place] % (Auto) 8.1 % 02/25/25 09:10 Eos % (Auto) 0.0 % 02/25/25 09:10 Baso % (Auto) 0.7 % 02/25/25 09:10 Neut # (Auto) 6.11 10^3/uL (1.8-7.7) 02/25/25 09:10 Lymph # (Auto) 0.7 10^3/uL (0.8-4.8) L 02/25/25 09:10 [place] # (Auto) 0.6 10^3/uL (0.2-0.9) 02/25/25 09:10 Eos # (Auto) 0.0 10^3/uL (0.0-0.8) 02/25/25 09:10 Baso # (Auto) 0.1 10^3/uL (0.0-0.1) 02/25/25 09:10 Nucleated RBC % (auto) 0 % 02/25/25 09:10 Nucleated RBCs # 0.0 /100WBC 02/25/25 09:10 Sodium 135 mmol/L (136-145) L 02/25/25 09:10 Potassium 4.0 mmol/L (3.5-5.1) 02/25/25 09:10 Chloride 102 mmol/L (98-107) 02/25/25 09:10 Carbon Dioxide 20 mmol/L (22-29) L 02/25/25 09:10 Anion Gap 17.0 (5-19) 02/25/25 09:10 BUN 14 mg/dL (6-20) 02/25/25 09:10 Creatinine 0.9 mg/dL (0.7-1.2) 02/25/25 09:10 GFR Calculation 98.4 mL/min (90-130) 02/25/25 09:10 Glucose 120 mg/dL (65-115) H 02/25/25 09:10 Calculated Osmolality 282 mOsm/kg (285-295) L 02/25/25 09:10 Lactic Acid 0.9 mmol/L (0.5-2.2) 02/25/25 09:10 Calcium 9.2 mg/dL (8.5-10.5) 02/25/25 09:10 Total Bilirubin 0.7 mg/dL (0.15-1.2) 02/25/25 09:10 AST 36 U/L (0-40) 02/25/25 09:10 ALT 49 U/L (0-41) H 02/25/25 09:10 Alkaline Phosphatase 65 U/L (40-130) 02/25/25 09:10 Total Protein 7.4 g/dL (6.6-8.7) 02/25/25 09:10 Albumin 4.3 g/dL (3.5-5.2) 02/25/25 09:10 Globulin 3.1 g/dL (1.3-4.6) 02/25/25 09:10 Urine Color Yellow (Yellow) 02/25/25 09:06 Urine Appearance Clear (CLEAR) 02/25/25 09:06 Urine pH >=9.0 (5-7) A 02/25/25 09:06 Ur Specific [place] 1.032 (1.005-1.030) H 02/25/25 09:06 Urine Protein 1+ (Negative) A 02/25/25 09:06 Urine Glucose (UA) Negative (Normal) 02/25/25 09:06 Urine Ketones Trace (Negative) 02/25/25 09:06 Urine Blood Negative (Negative) 02/25/25 09:06 Urine Nitrate Negative (Negative) 02/25/25 09:06 Urine Bilirubin Negative (Negative) 02/25/25 09:06 Urine Urobilinogen 1.0 mg/dL (Negative) 02/25/25 09:06 Ur Leukocyte Esterase Negative (Negative) 02/25/25 09:06 Urine RBC 3-5 /hpf (0-2) 02/25/25 09:06 Urine WBC 0-5 /hpf (0-5) 02/25/25 09:06 Ur Squamous Epith Cells 0-5 /hpf (0-5) 02/25/25 09:06 Amorphous Sediment Not Reportable 02/25/25 09:06 Urine Bacteria None seen /hpf (NONE) 02/25/25 09:06 Hyaline Casts 0-4 /lpf H 02/25/25 09:06 All radiology interpretation(s) finalized by discharge Discharge Plan Discharge Patient Disposition: Home Clinical Impression: Left lower lobe pneumonia Condition: Stable Prescriptions: New ondansetron HCl 4 mg tablet 4 mg PO Q6H PRN (Reason: nausea and vomiting) Qty: 20 0RF No Action clonazepam [Klonopin] 1 mg tablet 1 mg PO .bedtime Qty: 30 4RF Rx Instructions: Take one tablet at bedtime acetaminophen [Tylenol] 325 mg Tablet 325 mg PO QID PRN (Reason: Fever Or Pain) Discharge Orders: Discharge ED (Routine); Ordered 02/25/25 Ordered By: Rd Rizvi Discharge Diet: Usual diet Discharge Activity: Resume usual activity Patient Instructions: Pneumonia (ED), Opioid Safety, Pain Management, Patient Portal & Tuan Instructions Activity Restrictions/Additional Instructions: [facility] It is very important that you follow up as instructed or that you return to the Emergency Department should you have concerns or if your condition changes or worsens in any way. You were seen in the emergency room with left-sided pain. CT of your abdomen did not show any abnormality but did show a left lower lobe pneumonia. This was also noted on the chest x-ray. Your other labs Did not show anything clinically significant. Your urine was mildly concentrated but there is no signs of infection. You are given an antibiotic to take once a day for 1 week. Print Language: Paraguayan Coding Level of Care Code ED Cash Specialist for Annie Murillo
--- NOTE | 2025-02-25 09:18 | CT_ITS ---
WS: [id number] CT ABDOMEN AND PELVIS NONCONTRAST HISTORY: flank pain, LEFT side for 2 days. TECHNIQUE: Imaging performed through the abdomen and pelvis. Coronal and sagittal reformats are submitted. All CT scans at [facility] use at least one of these dose optimization techniques: automated exposure control; mA and/or kV adjustment per patient size (includes targeted exams where dose is matched to clinical indication); or iterative reconstruction. DLP: 1152.63 mGy.cm COMPARISON: 07/06/2023 Lower thorax: Consolidation at the LEFT lung base consistent with pneumonia. No pleural effusion. Normal size heart. Liver: Mild hepatic steatosis. Gallbladder: Normal gallbladder. No pericholecystic fluid or cholelithiasis. No gallbladder wall thickening. Pancreas: Normal size and attenuation. Normal pancreatic duct. No pancreatitis or mass. Spleen: Spleen is slightly enlarged measuring 14.5 cm in length. Adrenal glands: Normal. No mass. Right kidney: Normal size kidney with no mass or hydronephrosis. Left kidney: Normal size kidney with no mass or hydronephrosis. Aorta: Normal abdominal aorta, no aneurysm or atherosclerosis. No free fluid, intraperitoneal air or significant lymphadenopathy. GI tract: Prior appendectomy. No obstruction. No colitis. Abdominal wall: Tiny umbilical hernia. Pelvis: Normal. Osseous structures: Bilateral L5 pars defects. No anterolisthesis of L5. CT/CT kidney stone [id number] IMPRESSION: 1. LEFT lower lobe pneumonia. 2. No renal obstruction or perinephric stranding. 3. Prior appendectomy. 4. No ascites. 5. Mild splenomegaly.
[2025-02-25 09:19] LABS: Hematocrit 41.7 % (37-53); Hemoglobin 14.10 g/dL (11.27-16.99); Mean Corpuscular HGB Conc 33.8 g/dL (30-55); Mean Corpuscular Hemoglobin 29.5 pg (27-33); Mean Corpuscular Volume 87.2 fl (82-101); Nucleated Red Blood Cells % 0 %; Platelet Count 186 10^3/cmm (157-399); Red Blood Count 4.78 10^6/uL (3.85-5.65); White Blood Count 7.50 10^3/uL (3.29-11.43)
[2025-02-25 09:19] LABS: Glucose Urine UA Negative (Normal); Nitrate Urine Negative (Negative)
[2025-02-25 09:24] LABS: Add Urine Microscopic? YES
[2025-02-25 09:25] LABS: Specific Gravity, Urine 1.032 (1.005-1.030)
[2025-02-25 09:34] LABS: Alanine Aminotransferase 49 U/L (0-41); Albumin Level 4.3 g/dL (3.5-5.2); Alkaline Phosphatase 65 U/L (40-130); Anion Gap 17.0 (5-19); Aspartate Amino Transferase 36 U/L (0-40); Blood Urea Nitrogen 14 mg/dL (6-20); Calcium 9.2 mg/dL (8.5-10.5); Carbon Dioxide 20 mmol/L (22-29); Chloride 102 mmol/L (98-107); Creatinine Clr Calc Pharmacy 157.6692; Globulin 3.1 g/dL (1.3-4.6); Glucose 120 mg/dL (65-115); Osmolality Calculated 282 mOsm/kg (285-295); Potassium 4.0 mmol/L (3.5-5.1); Sodium 135 mmol/L (136-145); Total Protein 7.4 g/dL (6.6-8.7)
[2025-02-25 09:35] LABS: Lactic Sepsis W/Reflex 0.9 mmol/L (0.5-2.2)
[2025-02-25] MEDS: ondansetron 2 mg/ML SDV 2 mL 4 MG IVP (09:35)
--- NOTE | 2025-02-25 10:59 | XR_ITS ---
WS: [id number] XR chest 1V portable [id number] REASON FOR EXAM: dyspnea/cough FINDINGS: Suboptimal inspiration. Heart and the mediastinum are within normal limits. Calcified granulomatous disease bilaterally. Vague increased density behind the heart which at least in part is due to poor inspiratory effort with crowding of lung markings. Atelectasis or acute pneumonitis possible. Bony thorax intact without significant abnormality. XR/XR chest 1V portable [id number] IMPRESSION: Potential left lower lung abnormality as above. As clinically warranted conside r repeat examination with better inspiratory effort.
[2025-02-25 11:32] VITALS: PULSE 87; O2SAT 95
[2025-02-25 11:35] VITALS: PULSE 81; O2SAT 96
== END 2025-02-25 11:42 | disposition home or self-care (01) ==
PROVIDERS: Emergency Provider Family Medicine
DX: J18.9 Pneumonia, unspecified organism (principal)
CPT/HCPCS: 36415; 71045; 74176; 80053; 81001; 83605; 85025; 96374; 99285; J2405; J7030